=== PATIENT | male | born 1955 | race Caucasian/White ===

== ENCOUNTER 2025-01-20 00:01 | Day surgery (SDC) | payer MEDICARE, SELFPAY ==
[2025-01-07 15:25] VITALS: BMI 23.7
--- OUTSIDE RECORDS SUMMARY | 2025-01-20 00:04 | XMS_ITS | Data Portability ---
Author Organization [place] [facility] [employer], Main Office Address [address] [place] [address] Assessment Encounter Date Assessment Date Assessment LastModified by Organization Details LastModified Time 03/28/2023 03/28/2023 Blood work diagnosis discussed continue current therapy follow-up 6 months Not available 03/29/2023 18:31:30 05/20/2023 05/20/2023 X-ray nothing acute tetanus shot doxycycline follow-up 4 days [email or web address] Not available 05/20/2023 21:41:41 05/23/2023 05/23/2023 Keep regular appointment he is getting better every day he says he will finish the antibiotics which she had some superficial cellulitis as improving nicely if it does not completely go away he will let me know declines all immunizations and screenings on his wellness part see me at his regularly scheduled appointment Not available 05/26/2023 15:26:42 09/26/2023 09/26/2023 Continue current therapy follow-up 6 months [email or web address] Not available 09/26/2023 14:54:00 Plan of Treatment Reminders Order Date Submit Date Provider Last Modified By Organization Details Last Modified Time Details Appointments None recorded. Lab PSA, serum or plasma 2022 023 [email or web address] Not available 15:03:26 CBC w/ auto diff 2022 023 RE Not available 13:34:38 lipid panel, serum 2022 023 RE Not available 13:39:11 CMP, serum or plasma 2022 023 RE Not available 13:39:16 Referral None recorded. Procedures None recorded. Surgeries None recorded. Imaging None recorded. Medication Orders doxycycline hyclate 100 mg capsule 2022 023 [email or web address] [id number], [address], [place], [id number], 16:44:55 Patient TargetsNo targets recorded. Patient Instructions Encounter Date Encounter Id Patient Instructions Last Modified By Organization Details Last Modified Time 05/23/2023 [id number] dementia rating scale-2* [email or web address] Not available 05/26/2023 15:26:59 alcohol misuse* [email or web address] Not available 05/26/2023 15:26:59 depression screening* [email or web address] Not available 05/26/2023 15:26:59 Timed Up and Go test (TUG)* [email or web address] Not available 05/26/2023 15:26:59 multi-dimensiona l health assessment questionnaire* [email or web address] Not available 05/26/2023 15:26:59 Personalized a lth Plan and Screening Recommendations Advance Directives - Do you have one? No Advance Directives - Do we have your advance directive on file in your health record? Primary Prevention/Interven tion (prevents or decreases the chance of common diseases from occurring) Smoking Risk: Non Smoker Alcohol Misuse Screening: Negative Weight: Appropriate Overwei ght continue your current weight loss efforts try to lose 5% of your body weight try to lose 10% of your body weight Physical activity: Appropriate physical activity Nutrition: Good Average Fall Risk (screened today): Low Vaccines Pneumococcal: Ordered Recommended today Recommended today, but you have declined Influenza: Your next one in the fall of this year Chronic Disease Risks Stroke: Low Risk Intermediate Risk I have no recommendations Act carter diagnosis, Continue current treatment plan Heart Attack: Low risk I have no recommendations Clogging of the Arteries: Low risk I have no recommendations Diabetes: Low Risk I have no recommendations Secondary Prevention/Interven tion (detects treatable diseases before they may cause symptoms, disability, or ) Prostate Cancer Screening: Colon Cancer Screening: Colonoscopy Date Screening Last Performed: ____ Eye Disease Screening: Dementia Risk: Low I have no recommendations Depression Screening: Negative Active diagnosis, Continue current treatment plan [email or web address] Not available 05/23/2023 15:05:37 Reason for Referral None Reported. Results Created Date Observation Date Name Description Value Unit Range Abnormal Flag Note LastModifiedBy Organization Detail LastModifiedTime 03/28/20 23 03/28/2023 CBC/C OMPLE TE BLD COUNT W/DIF F white blood cells 4.6 x10'3 /uL 4.2-10 .8 Not Available [facility] (Lab) [address] [place], [address], 03/28/2023 13:34:38 03/28/20 23 03/28/2023 CBC/C OMPLE TE BLD COUNT W/DIF F red blood cells 4.35 x10'6 /uL 4.10-5 .80 Not Available [facility] (Lab) [address] [place], [address], 03/28/2023 13:34:38 03/28/20 23 03/28/2023 CBC/C OMPLE TE BLD COUNT W/DIF F hemoglobin 13.5 g/dL 13.2-1 7.0 Not Available [facility] (Lab) [address] [place], [address], 03/28/2023 13:34:38 03/28/20 23 03/28/2023 CBC/C OMPLE TE BLD COUNT W/DIF F hematocrit 40.3 % 39.3-5 0.0 Not Available [facility] (Lab) [address] [place], [address], 03/28/2023 13:34:38 03/28/20 23 03/28/2023 CBC/C OMPLE TE BLD COUNT W/DIF F mean red cell volume 92.6 fL 80.0-9 7.0 Not Available [facility] (Lab) [address] [place], [address], 03/28/2023 13:34:38 03/28/20 23 03/28/2023 CBC/C OMPLE TE BLD COUNT W/DIF F mean red cell hemoglobin 31.0 pg 27.0-3 3.0 Not Available [facility] (Lab) [address] [place], [address], 03/28/2023 13:34:38 03/28/20 23 03/28/2023 CBC/C OMPLE TE BLD COUNT W/DIF F mean RBC HGB concentratio n 33.5 g/dL 31.0-3 6.0 Not Available [facility] (Lab) [address] [place], [address], 03/28/2023 13:34:38 03/28/20 23 03/28/2023 CBC/C OMPLE TE BLD COUNT W/DIF F red cell distribution width 11.9 % 11.8-1 5.5 Not Available [facility] (Lab) [address] [place], [address], 03/28/2023 13:34:38 03/28/20 23 03/28/2023 CBC/C OMPLE TE BLD COUNT W/DIF F platelets 196 x10'3 /uL 150-40 0 Not Available [facility] (Lab) [address] [place], [address], 03/28/2023 13:34:38 03/28/20 23 03/28/2023 CBC/C OMPLE TE BLD COUNT W/DIF F mean platelet volume 9.6 fL 9.0-12 .4 Not Available [facility] (Lab) [address] [place], [address], 03/28/2023 13:34:38 03/28/20 23 03/28/2023 CBC/C OMPLE TE BLD COUNT W/DIF F neutrophils 64.3 % 39.0-7 2.0 Not Available [facility] (Lab) [address] [place], [address], 03/28/2023 13:34:38 03/28/20 23 03/28/2023 CBC/C OMPLE TE BLD COUNT W/DIF F lymphocytes 22.2 % 16.0-4 7.0 Not Available [facility] (Lab) [address] [place], [address], 03/28/2023 13:34:38 03/28/20 23 03/28/2023 CBC/C OMPLE TE BLD COUNT W/DIF F monocytes 10.6 % 5.0-12 .0 Not Available [facility] (Lab) [address] [place], [address], 03/28/2023 13:34:38 03/28/20 23 03/28/2023 CBC/C OMPLE TE BLD COUNT W/DIF F eosinophils 1.9 % 1.0-7. 0 Not Available [facility] (Lab) [address] [place], [address], 03/28/2023 13:34:38 03/28/20 23 03/28/2023 CBC/C OMPLE TE BLD COUNT W/DIF F basophils 0.6 % 0.0-2. 0 Not Available [facility] (Lab) [address] [place], [address], 03/28/2023 13:34:38 03/28/20 23 03/28/2023 CBC/C OMPLE TE BLD COUNT W/DIF F immature granulocytes 0.4 % 0.00-0 .50 Not Available [facility] (Lab) [address] [place], [address], 03/28/2023 13:34:38 03/28/20 23 03/28/2023 CBC/C OMPLE TE BLD COUNT W/DIF F neutrophils, absolute count 2.97 x10'3 /uL 1.5-8. 0 Not Available [facility] (Lab) [address] [place], [address], 03/28/2023 13:34:38 03/28/20 23 03/28/2023 CBC/C OMPLE TE BLD COUNT W/DIF F lymphocytes, absolute count 1.03 x10'3 /uL 1.07-3 .43 low Not Available [facility] (Lab) [address] [place], [address], 03/28/2023 13:34:38 03/28/20 23 03/28/2023 CBC/C OMPLE TE BLD COUNT W/DIF F monocytes, absolute count 0.49 x10'3 /uL 0.29-0 .99 Not Available [facility] (Lab) [address] [place], [address], 03/28/2023 13:34:38 03/28/20 23 03/28/2023 CBC/C OMPLE TE BLD COUNT W/DIF F eosinophils, absolute count 0.09 x10'3 /uL 0.02-0 .53 Not Available [facility] (Lab) [address] [place], [address], 03/28/2023 13:34:38 03/28/20 23 03/28/2023 CBC/C OMPLE TE BLD COUNT W/DIF F basophils, absolute count 0.03 x10'3 /uL 0.01-0 .08 Not Available [facility] (Lab) [address] [place], [address], 03/28/2023 13:34:38 03/28/20 23 03/28/2023 CBC/C OMPLE TE BLD COUNT W/DIF F immature granulocytes ,absolute 0.02 x10'3 /uL 0.00-0 .05 Not Available [facility] (Lab) [address] [place], [address], 03/28/2023 13:34:38 03/28/20 23 03/28/2023 CBC/C OMPLE TE BLD COUNT W/DIF F nucleated red blood cells 0.0 % -0 Not Available [facility] (Lab) [address] [place], [address], 03/28/2023 13:34:38 03/28/20 23 03/28/2023 CBC/C OMPLE TE BLD COUNT W/DIF F NRBC# 0.00 x10'3 /uL Not Available [facility] (Lab) [address] [place], [address], 03/28/2023 13:34:38 03/28/20 23 03/28/2023 LIPID PANEL cholesterol 186 mg/dL 140-19 9 NIH SAQIB NSUS RECOM MENDA TION FOR NIKOS STERO L: ADULT CHILD LOW RISK: <200 <170 BORDE RLINE : <200- 239 ----- HIGH RISK: >240 >200 Not Available [facility] (Lab) [address] [place], [address], 03/28/2023 13:39:10 03/28/20 23 03/28/2023 LIPID PANEL triglyceride s 145 mg/dL 0-150 NIH SAQIB NSUS REPOR T RECOM MENDA TION FOR TRIGL YCERI RIMA: ADULT CHILD LOW RISK: <150 ----- BODER LINE: 150-1 99 ----- HIGH RISK: >200 ----- Not Available [facility] (Lab) [address] [place], [address], 03/28/2023 13:39:10 03/28/20 23 03/28/2023 LIPID PANEL HDL cholesterol 52 mg/dL 40- Not Available [facility] (Lab) [address] [place], [address], 03/28/2023 13:39:10 03/28/20 23 03/28/2023 LIPID PANEL LDL cholesterol, calculated 105 mg/dL 0-130 NIH SAQIB NSUS REPOR T RECOM MENDA TIONS FOR LDL: ADULT CHILD LOW RISK <130 <110 (OPTI MAL LDL) <100 ----- BORDE RLINE : 130-1 59 ----- HIGH RISK: >160 >130 A TRIGL YCERI DE RESUL T >400 INVAL IDATE S THE CALCU LATIO N FOR LDL FRACT IONAT ION - THE LDL RESUL T WILL NOT BE REPOR NINO. Not Available [facility] (Lab) [address] [place], [address], 03/28/2023 13:39:10 03/28/20 23 03/28/2023 COMPR EHENS CARTER METAB OLIC PANEL sodium 140 mmol/ L 137-14 5 Not Available [facility] (Lab) [address] [place], [address], 03/28/2023 13:39:16 03/28/20 23 03/28/2023 COMPR EHENS CARTER METAB OLIC PANEL potassium 4.6 mmol/ L 3.5-5. 1 Not Available [facility] (Lab) [address] [place], [address], 03/28/2023 13:39:16 03/28/20 23 03/28/2023 COMPR EHENS CARTER METAB OLIC PANEL chloride 106 mmol/ L 98-107 Not Available [facility] (Lab) [address] [place], [address], 03/28/2023 13:39:16 03/28/20 23 03/28/2023 COMPR EHENS CARTER METAB OLIC PANEL carbon dioxide 27 mmol/ L 22-30 Not Available [facility] (Lab) [address] [place], [address], 03/28/2023 13:39:16 03/28/20 23 03/28/2023 COMPR EHENS CARTER METAB OLIC PANEL anion gap 11.6 mmol/ L 14-22 low Not Available [facility] (Lab) [address] [place], [address], 03/28/2023 13:39:16 03/28/20 23 03/28/2023 COMPR EHENS CARTER METAB OLIC PANEL glucose 80 mg/dL 70-99 Not Available [facility] (Lab) [address] [place], [address], 03/28/2023 13:39:16 03/28/20 23 03/28/2023 COMPR EHENS CARTER METAB OLIC PANEL BUN 29 mg/dL 8-19 high Not Available [facility] (Lab) [address] [place], [address], 03/28/2023 13:39:16 03/28/20 23 03/28/2023 COMPR EHENS CARTER METAB OLIC PANEL creatinine 1.12 mg/dL 0.66-1 .25 Not Available [facility] (Lab) [address] [place], [address], 03/28/2023 13:39:16 03/28/20 23 03/28/2023 COMPR EHENS CARTER METAB OLIC PANEL GFR >60 Refer ence Range : Lula ge GFR Healt hy Adult : >60 mL/mi n/1.7 3 m2 Chron ic Kidne y Disea se: 15-60 mL/mi n/1.7 3 m2 Kidne y Failu re: <15/m L/min /1.73 m2 www.n iddk. nih.g ov The MDRD study equat ion has not been valid ated in child mason <18 years of age; pregn ant women ; the elder ly >85 years of age; or in some racia l or ethni c subgr oups, such as Histx nics. Outsi de the valid ated deep eters , estim ated GFR is less accur ate, requi ring clini melissa judgm ent on a case- by-ca se basis . Clini melissa inter preta tion for other races and ages must be made by the clini angela. The MDRD study equat ion has not been valid ated for the evalu ation of serum creat inine relat ed to nutri amita l statu s or medic ation usage . For perso ns <18 years of age, a pedia tric GFR calcu lator is avail able on the NK websi te: https ://tommy w.liane ivey.o rg/pr ofess ional s/kdo qi/gf r_cal culat or Not Available [facility] (Lab) [address] [place], [address], 03/28/2023 13:39:16 03/28/20 23 03/28/2023 COMPR EHENS CARTER METAB OLIC PANEL alkaline phosphatase 50 U/L 38-126 Not Available [facility] (Lab) [address] [place], [address], 03/28/2023 13:39:16 03/28/20 23 03/28/2023 COMPR EHENS CARTER METAB OLIC PANEL alanine aminotransfe rase 26 U/L 0-50 Not Available [facility] (Lab) [address] [place], [address], 03/28/2023 13:39:16 03/28/20 23 03/28/2023 COMPR EHENS CARTER METAB OLIC PANEL aspartate aminotransfe rase 34 U/L 15-46 Not Available [facility] (Lab) [address] [place], [address], 03/28/2023 13:39:16 03/28/20 23 03/28/2023 COMPR EHENS CARTER METAB OLIC PANEL bilirubin, total 0.90 mg/dL 0.20-1 .30 Not Available [facility] (Lab) [address] [place], [address], 03/28/2023 13:39:16 03/28/20 23 03/28/2023 COMPR EHENS CARTER METAB OLIC PANEL calcium 9.2 mg/dL 8.4-10 .2 Not Available [facility] (Lab) [address] [place], [address], 03/28/2023 13:39:16 03/28/20 23 03/28/2023 COMPR EHENS CARTER METAB OLIC PANEL total protein 7.0 g/dL 6.3-8. 2 Not Available [facility] (Lab) [address] [place], [address], 03/28/2023 13:39:16 03/28/20 23 03/28/2023 COMPR EHENS CARTER METAB OLIC PANEL albumin 4.2 g/dL 3.0-4. 4 Not Available [facility] (Lab) [address] [place], [address], 03/28/2023 13:39:16 03/28/20 23 03/28/2023 COMPR EHENS CARTER METAB OLIC PANEL globulin 2.8 g/dL 2.6-4. 2 Not Available [facility] (Lab) [address] [place], [address], 03/28/2023 13:39:16 03/28/20 23 03/28/2023 COMPR EHENS CARTER METAB OLIC PANEL A/G ratio 1.5 ratio 1.0-2. 0 Not Available [facility] (Lab) [address] [place], [address], 03/28/2023 13:39:16 03/28/20 23 03/28/2023 PSA SCREE N PSA medicare screen 1.07 NG/mL 0.00-4 .00 Not Available [facility] (Lab) [address] [place], [address], 03/28/2023 14:03:13 05/20/20 23 XR, knee [facility] [address] [place] [address] Patien t Name: EDEL ESPINOZA ion #: [id number] Sex: M : 1954 7 Dictat ed By: Trino Mauricio Attend ing Physic anatoliy: ELI TURNER Orderi Physic anatoliy: ELI TURNER Exam Date: 2022 10:19 AM Exam Name: XR KNEE LT 3V Admitt ing Diagno sis(es ): Knee [facility] al Indica tion: knee pain Compar darrion: None FINDIN GS: The 3views of the knee show normal alignm ent withou t fractu res or disloc ations . The medial and latera l tibiof emoral compar tments and patell ofemor al compar tment are unrema rkable . There is no knee region soft tissue swelli ng. Hoffa' s fat pad region is unrema rkable . There are no joint bodies . There is no joint effusi on. There are no radiop aque foreig n bodies . If there is furthe r concer n, recomm end follow -up radiog raphs or MRI for comple te assess ment. IMPRES NADIRA: No fractu res or disloc ation of the knee. SL: [id number] Electr onical ly Signed by: Trino Mauricio at 2022 11:34: 32 AM Page 1 [facility] (Imaging) [address] [place], [address], 05/20/2023 15:03:39 Result Notes None recorded. Problems Name Problem SNOMED Code Status Onset Date Resolution Date Notes Provider Name and Address Organization Details Recorded Time Nocturia 811155427 Completed Not Available [facility] 3 01:12:18 Insomnia 291682134 Active 2018 Not Available [facility] 3 07:13:12 Dupuytren 's disease of palm 350323537 Active Not Available [facility] 3 07:13:12 Abdominal pain 55897111 Completed Not Available [facility] 3 01:12:18 Gastroeso phageal reflux disease 304766209 Active Not Available [facility] 3 07:13:12 Gastroeso phageal reflux disease without esophagit is 853326893 Active 2018 Not Available [facility] 3 07:13:12 Sore throat 667191415 Active 2021 Not Available [facility] 3 07:13:12 Syncope 317204643 Completed 201604/28/2019 Not Available [facility] 3 01:12:18 Numbness of foot 119509934 Completed 201604/28/2019 Not Available [facility] 3 01:12:18 Depressiv e disorder 22025927 Active Not Available [facility] 3 07:13:12 Ulnar neuropath y 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 Active Not Available [facility] 3 07:13:12 Proctitis 4196067 Completed Not Available [facility] 3 01:12:18 Celiac disease 203089372 Active 2016 Not Available [facility] 3 07:13:12 Disorder of rotator cuff 363171264 Active Not Available [facility] 3 07:13:12 Pain of shoulder region 63152309 Completed Not Available [facility] 3 01:12:18 Gastritis 3807552 Active Not Available [facility] 3 07:13:12 Anxiety 23022098 Active Not Available [facility] 3 07:13:12 Essential hypertens ion 96439187 Active Not Available [facility] 3 07:13:12 Colitis 90039202 Completed Not Available [facility] 3 01:12:19 Rectal pain 48298221 Completed Not Available [facility] 3 01:12:19 COVID-19 685411385 Active 2021 Not Available [facility] 3 07:13:12 Skin lesion 69334384 Completed Not Available [facility] 3 01:12:19 Injury of knee 728833290 Active 2022 Not Available [facility] 3 07:13:11 Pain of left knee joint 60475103164 4107 Active 2022 Not Available [facility] 3 07:13:12 Open wound of knee without complicat ion 79661983 Active 2022 Not Available [facility] 3 07:13:12 Problem Notes None recorded. Procedures Surgical History Date Name Laterality Status Provider Name and Address Organization Details Recorded Time 05/23/20 Medicare Wellness CPT Code, Initial completed Nell Ladd RN [place] - [facility] 05/23/2023 15:00:09 09/18/19 23 Endoscopy completed Not Available [facility] 3 01:06:50 09/18/19 23 Colonoscopy completed Not Available [facility] 11/08/19 23 01:06:50 other completed Not Available [facility] 09/2022 01:06:50 Imaging Results Imaging Date Name Status LastModified by Organiz ation Details LastModified Time 05/20/2023 [facility] [address] [facility], [place], [address], 05/20/2023 15:03:39 Procedure Notes None recorded. Medical Equipment None Reported. Allergies Allergen ID Allergen Name Allergen Category Reaction Reaction Severity Criticality Documentation Date Start Date Code Code System Note Provider Name and Address Organization Details Recorded Time 1977 iodine medicatio n respirato ry distress Not available Not available 11/07/2022 5933 RxNorm Not Available [facility] 3 01:18:45 Medications Name Sig Start Date Stop Date Status Note LastModified by Organization Details LastModified Time amoxicillin 500 mg capsule TAKE 1 CAPSULE BY MOUTH EVERY 8 HOURS UNTIL ALL TAKEN 03/28 completed Not Available Not Available Not Available doxycycline hyclate 100 mg capsule TAKE 1 CAPSULE BY MOUTH TWICE DAILY FOR 7 DAYS active Not Available Not Available No t Available sulfasalazi ne 500 mg tablet TK 1 T PO TID UTD FOR 4 DAYS active Not Available Not Available No t Available clindamycin HCl 300 mg capsule 04/22 completed Not Available Not Available Not Available azithromyci n 250 mg tablet Take by oral route.2ta bs first day then 1 daily 03/22 completed Not Available Not Available Not Available aspirin 325 mg tablet Take 1 tablet every day by oral route for 90 days. 2013 active Not Available Not Available Not Avai lable ibuprofen 800 mg tablet TAKE 1 TABLET BY MOUTH EVERY 8 HOURS NEEDED FOR PAIN 03/28 completed Not Available Not Available Not Available cephalexin 250 mg capsule TAKE 1 CAPSULE BY MOUTH EVERY 6 HOURS UNTIL ALL TAKEN 03/28 completed Not Available Not Available Not Available sertraline 100 mg tablet TK 1 T PO Q DAY active Not Available Not Available No t Available Anucort-HC 25 mg suppository UNWRAP AND INSERT 1 SUPPOSITO RY RECTALLY BID active Not Available Not Available No t Available acetaminoph en 300 mg-codeine 30 mg tablet TAKE 1 TO 2 TABLETS BY MOUTH EVERY 4 HOURS NEEDED FOR PAIN 01/30 completed Not Available Not Available Not Available prochlorper azine maleate 10 mg tablet active Not Available Not Available No t Available sulfamethox azole 800 mg-trimetho prim 160 mg tablet 04/28 completed Not Available Not Available Not Available peg-electro lyte solution 420 gram oral solution MIX AND DRINK 1/2 AT 5 PM ON 09/17 AND THE OTHER 1/2 AT 5 AM ON 09/18 completed Not Available Not Available Not Available chlorpromaz ine 10 mg tablet TK 1 T PO TID 04/28 completed Not Available Not Available Not Available Nitro-Bid 2 % transdermal ointment APPLY TOPICALLY BID UTD active Not Available Not Available No t Available amoxicillin 875 mg tablet TK 1 T PO BID 10/21 completed Not Available Not Available Not Available Vitamin C 1,000 mg tablet Take by oral route. 12/20 completed Not Available Not Available Not Available lorazepam 0.5 mg tablet TAKE 1 TABLET BY MOUTH TWICE DAILY active Not Available Not Available No t Available trazodone 100 mg tablet TK 1 T PO QD HS 12/06 completed Not Available Not Available Not Available Kenalog 10 mg/mL suspension for injection In office injection administe red by the provider 09/12 completed [facility]: [phone] [id number] [phone] Not Available Not Available Not Available baclofen 10 mg tablet TK 1 T PO BID BEFORE MEALS 02/22 completed Not Available Not Available Not Available hydrocodone 7.5 mg-acetamin ophen 325 mg tablet 04/22 completed Not Available Not Available Not Available trazodone 150 mg tablet TAKE 1 AND 1/2 TABLETS BY MOUTH EVERY NIGHT AT BEDTIME active Not Available Not Available No t Available hydrocodone 7.5 mg-acetamin ophen 750 mg tablet active Not Available Not Available No t Available Gentle Laxative (bisacodyl) 5 mg tablet,zonia yed release TK 6 TS PO AT 8 AM ON 11/23/19 active Not Available Not Available No t Available docusate sodium 100 mg capsule Take 1 capsule every day by oral route. 03/08 completed Not Available Not Available Not Available sertraline 25 mg tablet TAKE SS T A DAY FOR 4 DAYS THEN INCREASE TO 1 T A DAY active Not Available Not Available No t Available ergocalcife rol (vitamin D2) 1,250 mcg (50,000 unit) capsule TAKE 1 CAPSULE BY MOUTH EVERY WEEK 03/08 completed Not Available Not Available Not Available Promethegan 25 mg rectal suppository active Not Available Not Available Not Available ibuprofen 600 mg tablet TAKE 1 TABLET BY MOUTH EVERY 6 HOURS NEEDED FOR PAIN 01/30 completed Not Available Not Available Not Available Pepcid 20 mg tablet Take 1 tablet every day by oral route. 10/21 completed Not Available Not Available Not Available sertraline 50 mg tablet TK 1 T PO QD active Not Available Not Available No t Available dicyclomine 10 mg capsule Take 1 capsule every day by oral route. active Not Available Not Available No t Available amoxicillin 875 mg-potassiu m clavulanate 125 mg tablet 03/08 completed Not Available Not Available Not Available escitalopra m 10 mg tablet TAKE 1 AND 1/2 TABLETS BY MOUTH EVERY DAY 03/28 completed Not Available Not Available Not Available escitalopra m 20 mg tablet TAKE 1 TABLET BY MOUTH EVERY DAY active Not Available Not Available No t Available Vesicare 5 mg tablet TAKE 1 TABLET BY MOUTH EVERY DAY AT BEDTIME 04/22 completed Not Available Not Available Not Available Aspir-81 2 daily 06/05 completed Not Available Not Available Not Available fiber 2 in am 2 in pm 2013 active Not Available Not Available Not Avai lable multivitami n 2020 active Not Available Not Available Not Avai lable lidocaine (PF) 10 mg/mL (1 %) injection solution In office injection administe red by the provider 09/12 completed [facility]: [id number] Not Available Not Available Not Available Bystolic 5 mg tablet Take 1 tablet by mouth every day as directed active Not Available Not Available No t Available Allergy Relief (cetirizine ) 01/30 completed Not Available Not Available Not Available Vitamin D 2,000 unit capsule Take by oral route. 12/20 completed Not Available Not Available Not Available dexlansopra zole 60 mg capsule,bip hase delayed release TAKE 1 CAPSULE BY MOUTH DAILY active Not Available Not Available No t Available GaviLyte-G 236 gram-22.74 gram-6.74 gram-5.86 gram oral solution MIX AND DRINK HALF AT 5 PM ON 11/23/19 AND THE OTHER HALF AT 5 AM ON 11/24/19 active Not Available Not Available No t Available Probiotic daily 03/28 completed Not Available Not Available Not Available EpiPen 2-Timothy 0.3 mg/0.3 mL injection, auto-inject or Take 1 auto as needed by injection route. active Not Available Not Available No t Available Powderlax 2022 active Not Available Not Available Not Avai lable prochlorper azine 2022 active Not Available Not Available Not Avai lable Nexium 24HR 20 mg capsule,del ayed release Take 1 capsule every day by oral route. 08/25 completed Not Available Not Available Not Available Fluarix Quad (PF) 60 mcg (15 mcg x 4)/0.5 mL IM syringe ADM 0.5ML IM UTD 08/23 completed Not Available Not Available Not Available Paxlovid 300 mg (150 mg x 2)-100 mg tablets in a dose pack TAKE 2 NIRMATREL VIR TABLETS AND 1 RITONAVIR TABLET TOGETHER BY MOUTH TWICE DAILY FOR 5 DAYS active Not Available Not Available No t Available Vitals Date Recorded Body mass index (BMI) Body height Heart rate Body temperature Body weight Systolic blood pressure Diastolic blood pressure Provider Name and Address Organization Details Last Updated DateTime 3 27.6 kg/m2 187.96 cm 67 /min 98.1 [degF] 91670.3 6 g 116 mm[Hg] 80 mm[Hg] Not Available [facility] 3 01:08:10 [id number]|2025-01-20 07:45:00|2025-01-20 07:45:00|[email or web address]_WILMER|LEIDY|Health Information Management|[id number]|"Anes - Initial Pre Proc Eval Procedure: Operation Date: 01/20/25 08:30 Proposed Procedures p Esophagogastroduodenoscopy & Colonoscopy - Adilson Barreto MD Date/Time: 01/20/25 07:45 Surgeon: Adilson Barreto MD Pre Op Diagnosis: GERD, Hx of polyps Patient Data Age: 69 Gender: M Height: 1.88 m Weight: 81.4 kg Last Vital Signs Temp 36.8 C 01/20/25 07:10 Pulse 61 01/20/25 07:10 Resp 18 01/20/25 07:10 BP 154/88 H 01/20/25 07:10 Pulse Ox 100 01/20/25 07:10 O2 Del Method Room Air 01/20/25 07:10 Allergies Allergy/AdvReac Type Severity Reaction Status Date / Time ascorbic acid Allergy Mild Verified 01/30/13 05:32 bromelains Allergy Mild Verified 01/30/13 05:32 iodine Allergy Mild Verified 01/30/13 05:32 Home Medications Medication Instructions Recorded Confirmed Type bupropion HCl 150 mg 24 hr tablet, 150 mg PO .am 01/07/25 01/20/25 History extended release dexlansoprazole 60 mg 60 mg PO DAILY 01/07/25 01/20/25 History capsule,biphase delayed release escitalopram oxalate 10 mg tablet 10 mg PO DAILY 01/07/25 01/20/25 History lorazepam 0.5 mg tablet 0.5 mg PO Q12H 01/07/25 01/20/25 History Patient hx anesthesia problems: none Family hx anesthesia problems: none Results Review: All pre-operative results and documents have been reviewed as part of the pre- operative evaluation. [facility] Past Medical History Medical History (Updated 01/20/25 @ 07:49 by Edel Krishna MD) GERD (gastroesophageal reflux disease) Depression Anxiety Surgical History Surgical History (Updated 01/20/25 @ 07:49 by Edel Krishna MD) History of esophagogastroduodenoscopy (EGD) H/O colonoscopy H/O elbow surgery Social History Social History Smoking status: Former smoker Tobacco type: cigarettes Alcohol intake: former Substance use: current Substance use type: does not use Living arrangements: with family Spiritual care concerns: No Anes - Eval Final PreProcedure Day of Procedure 01/20/25 07:45 Patient weight: normal Heart: regular rate and rhythm Lungs: clear to auscultation Airway: Mallampati scale class 1 Neurological: alert and oriented Last oral intake: >/= 8 hours ASA classification: II Emergent: no Anesthetic plan: proceed Anesthesia type and monitoring: general GIVS and standard monitoring Results Review: All pre-operative results and documents have been reviewed as part of the pre- operative evaluation. Informed Consent: The patient's anesthetic plan and its attendant risks and benefits were discussed with the patient/family/POA. Questions were solicited and answers provided to the satisfaction of the patient/family/POA. "
--- OUTSIDE RECORDS SUMMARY | 2025-01-20 00:04 | XMS_ITS | Data Portability ---
Author Organization [facility] [place] Address [address] [place] [address] Care Team Providers Care Film Examiner Name Role Phone MARJAN CANDELARIA Primary Care Provider [phone] Assessment Encounter Date Assessment Date Assessment LastModified by Organization Details LastModified Time 01/02/2024 01/02/2024 Insomnia trazodone anxiety appropriate on escitalopram lorazepam GERD PPI old records thinks he is up-to-date on screenings and immunizations but will have to see me follow-up with me in 4 months [email or web address] Not available 01/11/2024 22:52:56 07/02/2024 07/02/2024 Insomnia trazodone anxiety appropriate on escitalopram lorazepam GERD PPI old records thinks he is up-to-date on screenings and immunizations but will have to see me follow-up with me in 4 months we will continue with current therapy healthy lifestyle care instructions the aide with some weight loss was discussed due for colonoscopy in 2024 vaccinations declined Not available 07/11/2024 20:35:38 10/08/2024 10/08/2024 GERD with some breakthrough symptoms we will get an upper endoscopy he has been on the PPI for quite some time his anxiety has been stable insomnia continue current therapy blood work has been ordered follow up with me in 4 months Not available 10/10/2024 13:42:20 Plan of Treatment Reminders Order Date Submit Date Provider Last Modified By Organization Details Last Modified Time Details Appointments ANY 15 2024 09:30A Aayush Candelaria MD Not available Not available Not available Lab CMP, serum or plasma 2024 025 [facility], [address] [address], [place], [address], 10/10/2024 07:09:16 lipid panel, serum 2024 025 [facility], [address] [facility] [address], [place], [address], 10/10/2024 07:09:15 CBC w/ auto diff 2024 025 [facility], [address] [facility] [address], [place], [address], 10/10/2024 07:09:17 PSA, total, serum or plasma 2023 [address] [facility], [address] [place] [address], [address], [place], [address], 01/03/2024 08:27:59 lipid panel, serum 2023 024 [facility], [address] [place] [address], [address], [place], [address], 01/03/2024 08:27:56 CMP, serum or plasma 2023 [address] [facility], [address] [place] [address], [address], [place], [address], 01/03/2024 08:27:57 CBC w/ auto diff 2023 024 [facility], [address] [place] [address], [address], [place], [address], 01/03/2024 08:27:58 Referral None recorded. Procedures upper endoscopy procedure (EGD) (PROC) 2024 025 [facility], [address], [address], [place], [address], 01/05/2025 09:21:14 Surgeries None recorded. Imaging None recorded. Medication Orders None recorded. Patient TargetsNo targets recorded. Patient Instructions Encounter Date Encounter Id Patient Instructions Last Modified By Organization Details Last Modified Time 07/02/2024 [id number] A healthy lifestyle: care instructions [email or web address] Not available 07/11/2024 20:35:54 Reason for Referral None Reported. Results Created Date Observation Date Name Description Value Unit Range Abnormal Flag Note LastModifiedBy Organization Detail LastModifiedTime 01/02/2001/03/2024 LIPID PANEL cholesterol, total 174 mg/dL 100-19 9 Not Available [facility] ([facility]) [address] [place], [address], 01/03/2024 08:27:56 01/02/2001/03/2024 LIPID PANEL triglyceride s 77 mg/dL 0-149 Not Available [facility] ([facility]) [address] [place], [address], 01/03/2024 08:27:56 01/02/20 24 01/03/2024 LIPID PANEL HDL cholesterol 63 mg/dL >39 Not Available [facility] ([facility]) [address] [place], [address], 01/03/2024 08:27:56 01/02/20 24 01/03/2024 LIPID PANEL VLDL cholesterol melissa 14 mg/dL 5-40 Not Available [facility] ([facility]) [address] [place], [address], 01/03/2024 08:27:56 01/02/2001/03/2024 LIPID PANEL LDL chol calc ([facility]) 97 mg/dL 0-99 Not Available [facility] ([facility]) [address] [place], [address], 01/03/2024 08:27:56 01/02/20 24 01/03/2024 COMP. METAB OLIC PANEL (14) glucose 86 mg/dL 70-99 Not Available [facility] ([facility]) [address] [place], [address], 01/03/2024 08:27:57 01/02/20 24 01/03/2024 COMP. METAB OLIC PANEL (14) BUN 26 mg/dL 8-27 Not Available [facility] ([facility]) [address] [facility], [place], [address], 01/03/2024 08:27:57 01/02/20 24 01/03/2024 COMP. METAB OLIC PANEL (14) creatinine 1.23 mg/dL 0.76-1 .27 Not Available [facility] ([facility]) [address] [place], [address], 01/03/2024 08:27:57 01/02/20 24 01/03/2024 COMP. METAB OLIC PANEL (14) eGFR 65 mL/mi n/1.7 3 >59 Not Available [facility] ([facility]) [address] [place], [address], 01/03/2024 08:27:57 01/02/20 24 01/03/2024 COMP. METAB OLIC PANEL (14) BUN/creatini ne ratio 21 10-24 Not Available [facility] ([facility]) [address] [place], [address], 01/03/2024 08:27:57 01/02/20 24 01/03/2024 COMP. METAB OLIC PANEL (14) sodium 143 mmol/ L 134-14 4 Not Available [facility] ([facility]) [address] [place], [address], 01/03/2024 08:27:57 01/02/20 24 01/03/2024 COMP. METAB OLIC PANEL (14) potassium 4.6 mmol/ L 3.5-5. 2 Not Available [facility] ([facility]) [address] [place], [address], 01/03/2024 08:27:57 01/02/20 24 01/03/2024 COMP. METAB OLIC PANEL (14) chloride 105 mmol/ L 96-106 Not Available [facility] ([facility]) [address] [facility] [place], [address], 01/03/2024 08:27:57 01/02/20 24 01/03/2024 COMP. METAB OLIC PANEL (14) carbon dioxide, total 25 mmol/ L 20-29 Not Available [facility] ([facility]) [address] [facility] [place], [address], 01/03/2024 08:27:57 01/02/20 24 01/03/2024 COMP. METAB OLIC PANEL (14) calcium 9.8 mg/dL 8.6-10 .2 Not Available [facility] ([facility]) [address] [facility] [place], [address], 01/03/2024 08:27:57 01/02/20 24 01/03/2024 COMP. METAB OLIC PANEL (14) protein, total 6.8 g/dL 6.0-8. 5 Not Available [facility] ([facility]) [address] [facility] [place], [address], 01/03/2024 08:27:57 01/02/20 24 01/03/2024 COMP. METAB OLIC PANEL (14) albumin 4.5 g/dL 3.9-4. 9 Not Available [facility] ([facility]) [address] [facility] [place], [address], 01/03/2024 08:27:57 01/02/20 24 01/03/2024 COMP. METAB OLIC PANEL (14) globulin, total 2.3 g/dL 1.5-4. 5 Not Available [facility] ([facility]) [address] [facility] [place], [address], 01/03/2024 08:27:57 01/02/20 24 01/03/2024 COMP. METAB OLIC PANEL (14) A/G ratio 2.0 1.2-2. 2 Not Available [facility] ([facility]) [address] [facility], [place], [address], 01/03/2024 08:27:57 01/02/20 24 01/03/2024 COMP. METAB OLIC PANEL (14) bilirubin, total 0.6 mg/dL 0.0-1. 2 Not Available [facility] ([facility]) [address] [facility], [place], [address], 01/03/2024 08:27:57 01/02/20 24 01/03/2024 COMP. METAB OLIC PANEL (14) alkaline phosphatase 61 IU/L 44-121 Not Available [facility] ([facility]) [address] [facility], [place], [address], 01/03/2024 08:27:57 01/02/20 24 01/03/2024 COMP. METAB OLIC PANEL (14) AST (SGOT) 22 IU/L 0-40 Not Available [facility] ([facility]) [address] [facility], [place], [address], 01/03/2024 08:27:57 01/02/20 24 01/03/2024 COMP. METAB OLIC PANEL (14) ALT (SGPT) 22 IU/L 0-44 Not Available [facility] ([facility]) [address] [place], [address], 01/03/2024 08:27:57 01/02/20 24 01/03/2024 CBC WITH DIFFE RENTI AL/PL ATELE T WBC 4.0 x10e3 /uL 3.4-10 .8 Not Available [facility] ([facility]) [address] [place], [address], 01/03/2024 08:27:58 01/02/20 24 01/03/2024 CBC WITH DIFFE RENTI AL/PL ATELE T RBC 4.47 x10e6 /uL 4.14-5 .80 Not Available [facility] ([facility]) [address] [facility], [place], [address], 01/03/2024 08:27:58 01/02/20 24 01/03/2024 CBC WITH DIFFE RENTI AL/PL ATELE T hemoglobin 13.7 g/dL 13.0-1 7.7 Not Available [facility] ([facility]) [address] [facility], [place], [address], 01/03/2024 08:27:58 01/02/20 24 01/03/2024 CBC WITH DIFFE RENTI AL/PL ATELE T hematocrit 40.8 % 37.5-5 1.0 Not Available [facility] ([facility]) [address] [facility], [place], [address], 01/03/2024 08:27:58 01/02/20 24 01/03/2024 CBC WITH DIFFE RENTI AL/PL ATELE T MCV 91 fL 79-97 Not Available [facility] ([facility]) [address] [facility], [place], [address], 01/03/2024 08:27:58 01/02/20 24 01/03/2024 CBC WITH DIFFE RENTI AL/PL ATELE T MCH 30.6 pg 26.6-3 3.0 Not Available [facility] ([facility]) [address] [place], [address], 01/03/2024 08:27:58 01/02/20 24 01/03/2024 CBC WITH DIFFE RENTI AL/PL ATELE T MCHC 33.6 g/dL 31.5-3 5.7 Not Available [facility] ([facility]) [address] [place], [address], 01/03/2024 08:27:58 01/02/20 24 01/03/2024 CBC WITH DIFFE RENTI AL/PL ATELE T RDW 12.2 % 11.6-1 5.4 Not Available [facility] ([facility]) [address] [facility], [place], [address], 01/03/2024 08:27:58 01/02/20 24 01/03/2024 CBC WITH DIFFE RENTI AL/PL ATELE T platelets 199 x10e3 /uL 150-45 0 Not Available [facility] ([facility]) [address] [facility], [place], [address], 01/03/2024 08:27:58 01/02/20 24 01/03/2024 CBC WITH DIFFE RENTI AL/PL ATELE T neutrophils 51 % notest ab. Not Available [facility] ([facility]) [address] [facility], [place], [address], 01/03/2024 08:27:58 01/02/20 24 01/03/2024 CBC WITH DIFFE RENTI AL/PL ATELE T lymphs 32 % notest ab. Not Available [facility] ([facility]) [address] [facility], [place], [address], 01/03/2024 08:27:58 01/02/20 24 01/03/2024 CBC WITH DIFFE RENTI AL/PL ATELE T monocytes 12 % notest ab. Not Available [facility] ([facility]) [address] [facility], [place], [address], 01/03/2024 08:27:58 01/02/20 24 01/03/2024 CBC WITH DIFFE RENTI AL/PL ATELE T eos 3 % notest ab. Not Available [facility] ([facility]) [address] [facility], [place], [address], 01/03/2024 08:27:58 01/02/20 24 01/03/2024 CBC WITH DIFFE RENTI AL/PL ATELE T basos 1 % notest ab. Not Available [facility] ([facility]) [address] [facility], [place], [address], 01/03/2024 08:27:58 01/02/20 24 01/03/2024 CBC WITH DIFFE RENTI AL/PL ATELE T neutrophils (absolute) 2.1 x10e3 /uL 1.4-7. 0 Not Available [facility] ([facility]) [address] [facility], [place], [address], 01/03/2024 08:27:58 01/02/20 24 01/03/2024 CBC WITH DIFFE RENTI AL/PL ATELE T lymphs (absolute) 1.3 x10e3 /uL 0.7-3. 1 Not Available [facility] ([facility]) [address] [facility], [place], [address], 01/03/2024 08:27:58 01/02/20 24 01/03/2024 CBC WITH DIFFE RENTI AL/PL ATELE T monocytes(ab solute) 0.5 x10e3 /uL 0.1-0. 9 Not Available [facility] ([facility]) [address] [facility], [place], [address], 01/03/2024 08:27:58 01/02/20 24 01/03/2024 CBC WITH DIFFE RENTI AL/PL ATELE T eos (absolute) 0.1 x10e3 /uL 0.0-0. 4 Not Available [facility] ([facility]) [address] [facility], [place], [address], 01/03/2024 08:27:58 01/02/20 24 01/03/2024 CBC WITH DIFFE RENTI AL/PL ATELE T baso (absolute) 0.0 x10e3 /uL 0.0-0. 2 Not Available [facility] ([facility]) [address] [place], [address], 01/03/2024 08:27:58 01/02/20 24 01/03/2024 CBC WITH DIFFE RENTI AL/PL ATELE T immature granulocytes 1 % notest ab. Not Available [facility] ([facility]) [address] [facility], [place], [address], 01/03/2024 08:27:58 01/02/20 24 01/03/2024 CBC WITH DIFFE RENTI AL/PL ATELE T immature grans (abs) 0.0 x10e3 /uL 0.0-0. 1 Not Available [facility] ([facility]) [address] [facility], [place], [address], 01/03/2024 08:27:58 01/02/20 24 01/03/2024 PROST ATE-S PECIF IC AG prostate specific Ag 1.3 NG/mL 0.0-4. 0 Jacey ECLIA metho dolog y. Accor ding to the Ameri can [employer]o g[employer] iatio n, Serum PSA shoul d decre ase and remai n at undet ectab le level s after radic al prost atect lily. The AUA defin es bioch emica l recur rence as an initi al PSA value 0.2 ng/mL or great er follo wed by a subse quent confi rmato ry PSA value 0.2 ng/mL or great er. Value s obtai vinny with diffe rent assay metho ds or kits canno t be used inter harris eably . Resul ts canno t be inter prete d as absol jameson evide nce of the prese nce or absen ce of [facility] se. Not Available [facility] ([facility]) [address] [facility], [place], [address], 01/03/2024 08:27:59 10/08/1910/10/2024 LIPID PANEL cholesterol, total 141 mg/dL 100-19 9 Not Available [facility] ([facility]) [address] [facility], [place], [address], 10/10/2024 07:09:15 10/08/19 25 10/10/2024 LIPID PANEL triglyceride s 63 mg/dL 0-149 Not Available [facility] ([facility]) [address] [facility], [place], [address], 10/10/2024 07:09:15 10/08/19 25 10/10/2024 LIPID PANEL HDL cholesterol 54 mg/dL >39 Not Available [facility] ([facility]) [address] [place], [address], 10/10/2024 07:09:15 10/08/19 25 10/10/2024 LIPID PANEL VLDL cholesterol melissa 13 mg/dL 5-40 Not Available [facility] ([facility]) [address] [place], [address], 10/10/2024 07:09:15 10/08/19 25 10/10/2024 LIPID PANEL LDL chol calc ([facility]) 74 mg/dL 0-99 Not Available [facility] ([facility]) [address] [place], [address], 10/10/2024 07:09:15 10/08/19 25 10/09/2024 COMP. METAB OLIC PANEL (14) glucose 88 mg/dL 70-99 Not Available [facility] ([facility]) [address] [place], [address], 10/10/2024 07:09:16 10/08/19 25 10/09/2024 COMP. METAB OLIC PANEL (14) BUN 23 mg/dL 8-27 Not Available [facility] ([facility]) [address] [place], [address], 10/10/2024 07:09:16 10/08/19 25 10/09/2024 COMP. METAB OLIC PANEL (14) creatinine 1.25 mg/dL 0.76-1 .27 Not Available [facility] ([facility]) [address] [place], [address], 10/10/2024 07:09:16 10/08/19 25 10/09/2024 COMP. METAB OLIC PANEL (14) eGFR 63 mL/mi n/1.7 3 >59 Not Available [facility] ([facility]) [address], [place], [address], 10/10/2024 07:09:16 10/08/19 25 10/09/2024 COMP. METAB OLIC PANEL (14) BUN/creatini ne ratio 18 10-24 Not Available [facility] ([facility]) [address], [place], [address], 10/10/2024 07:09:16 10/08/19 25 10/09/2024 COMP. METAB OLIC PANEL (14) calcium 9.3 mg/dL 8.6-10 .2 Not Available [facility] ([facility]) [address] [place], [address], 10/10/2024 07:09:16 10/08/19 25 10/10/2024 COMP. METAB OLIC PANEL (14) sodium 140 mmol/ L 134-14 4 Not Available [facility] ([facility]) [address], [place], [address], 10/10/2024 07:09:16 10/08/19 25 10/10/2024 COMP. METAB OLIC PANEL (14) potassium 4.8 mmol/ L 3.5-5. 2 Not Available [facility] ([facility]) [address] [facility] [place], [address], 10/10/2024 07:09:16 10/08/19 25 10/10/2024 COMP. METAB OLIC PANEL (14) chloride 103 mmol/ L 96-106 Not Available [facility] ([place] [facility]) [address] [facility] [place], [address], 10/10/2024 07:09:16 10/08/19 25 10/10/2024 COMP. METAB OLIC PANEL (14) carbon dioxide, total 25 mmol/ L 20-29 Not Available [facility] ([place] [facility]) [address] [facility] [place], [address], 10/10/2024 07:09:16 10/08/19 25 10/10/2024 COMP. METAB OLIC PANEL (14) protein, total 6.3 g/dL 6.0-8. 5 Not Available [facility] ([facility]) [address], [place], [address], 10/10/2024 07:09:16 10/08/19 25 10/10/2024 COMP. METAB OLIC PANEL (14) albumin 4.2 g/dL 3.9-4. 9 Not Available [facility] ([facility]) [address], [place], [address], 10/10/2024 07:09:16 10/08/19 25 10/10/2024 COMP. METAB OLIC PANEL (14) globulin, total 2.1 g/dL 1.5-4. 5 Not Available [facility] ([facility]) [address] [facility], [place], [address], 10/10/2024 07:09:16 10/08/19 25 10/10/2024 COMP. METAB OLIC PANEL (14) bilirubin, total 0.6 mg/dL 0.0-1. 2 Not Available [facility] ([facility]) [address] [facility], [place], [address], 10/10/2024 07:09:16 10/08/19 25 10/10/2024 COMP. METAB OLIC PANEL (14) alkaline phosphatase 60 IU/L 44-121 Not Available [facility] ([facility]) [address] [facility], [place], [address], 10/10/2024 07:09:16 10/08/19 25 10/10/2024 COMP. METAB OLIC PANEL (14) AST (SGOT) 22 IU/L 0-40 Not Available [facility] ([facility]) [address] [facility], [place], [address], 10/10/2024 07:09:16 10/08/1910/10/2024 COMP. METAB OLIC PANEL (14) ALT (SGPT) 17 IU/L 0-44 Not Available [facility] ([facility]) [address] [facility], [place], [address], 10/10/2024 07:09:16 10/08/19 25 10/09/2024 CBC WITH DIFFE RENTI AL/PL ATELE T WBC 4.5 x10e3 /uL 3.4-10 .8 Not Available [facility] ([facility]) [address] [facility], [place], [address], 10/10/2024 07:09:17 10/08/1910/09/2024 CBC WITH DIFFE RENTI AL/PL ATELE T RBC 4.36 x10e6 /uL 4.14-5 .80 Not Available [facility] ([facility]) [address] [facility], [place], [address], 10/10/2024 07:09:17 10/08/19 25 10/09/2024 CBC WITH DIFFE RENTI AL/PL ATELE T hemoglobin 13.0 g/dL 13.0-1 7.7 Not Available [facility] ([facility]) [address] [facility], [place], [address], 10/10/2024 07:09:17 10/08/1910/09/2024 CBC WITH DIFFE RENTI AL/PL ATELE T hematocrit 40.6 % 37.5-5 1.0 Not Available [facility] ([facility]) [address] [facility], [place], [address], 10/10/2024 07:09:17 10/08/1910/09/2024 CBC WITH DIFFE RENTI AL/PL ATELE T MCV 93 fL 79-97 Not Available [facility] ([facility]) [address] [facility], [place], [address], 10/10/2024 07:09:17 10/08/1910/09/2024 CBC WITH DIFFE RENTI AL/PL ATELE T MCH 29.8 pg 26.6-3 3.0 Not Available [facility] ([facility]) [address] [facility], [place], [address], 10/10/2024 07:09:17 10/08/19 25 10/09/2024 CBC WITH DIFFE RENTI AL/PL ATELE T MCHC 32.0 g/dL 31.5-3 5.7 Not Available [facility] ([facility]) [address] [facility], [place], [address], 10/10/2024 07:09:17 10/08/1910/09/2024 CBC WITH DIFFE RENTI AL/PL ATELE T RDW 11.8 % 11.6-1 5.4 Not Available [facility] ([facility]) [address] [facility], [place], [address], 10/10/2024 07:09:17 10/08/1910/09/2024 CBC WITH DIFFE RENTI AL/PL ATELE T platelets 210 x10e3 /uL 150-45 0 Not Available [facility] ([facility]) [address] [facility], [place], [address], 10/10/2024 07:09:17 10/08/19 25 10/09/2024 CBC WITH DIFFE RENTI AL/PL ATELE T neutrophils 54 % notest ab. Not Available [facility] ([facility]) [address] [facility], [place], [address], 10/10/2024 07:09:17 10/08/1910/09/2024 CBC WITH DIFFE RENTI AL/PL ATELE T lymphs 30 % notest ab. Not Available [facility] ([facility]) [address] [facility], [place], [address], 10/10/2024 07:09:17 10/08/1910/09/2024 CBC WITH DIFFE RENTI AL/PL ATELE T monocytes 11 % notest ab. Not Available [facility] ([facility]) [address] [facility], [place], [address], 10/10/2024 07:09:17 10/08/1910/09/2024 CBC WITH DIFFE RENTI AL/PL ATELE T eos 3 % notest ab. Not Available [facility] ([facility]) [address] [facility], [place], [address], 10/10/2024 07:09:17 10/08/1910/09/2024 CBC WITH DIFFE RENTI AL/PL ATELE T basos 1 % notest ab. Not Available [facility] ([facility]) [address] [facility], [place], [address], 10/10/2024 07:09:17 10/08/1910/09/2024 CBC WITH DIFFE RENTI AL/PL ATELE T neutrophils (absolute) 2.5 x10e3 /uL 1.4-7. 0 Not Available [facility] ([facility]) [address] [facility], [place], [address], 10/10/2024 07:09:17 10/08/1910/09/2024 CBC WITH DIFFE RENTI AL/PL ATELE T lymphs (absolute) 1.3 x10e3 /uL 0.7-3. 1 Not Available [facility] ([facility]) [address] [facility], [place], [address], 10/10/2024 07:09:17 10/08/1910/09/2024 CBC WITH DIFFE RENTI AL/PL ATELE T monocytes(ab solute) 0.5 x10e3 /uL 0.1-0. 9 Not Available [facility] ([facility]) [address] [facility], [place], [address], 10/10/2024 07:09:17 10/08/1910/09/2024 CBC WITH DIFFE RENTI AL/PL ATELE T eos (absolute) 0.1 x10e3 /uL 0.0-0. 4 Not Available [facility] ([facility]) [address] [facility], [place], [address], 10/10/2024 07:09:17 10/08/19 25 10/09/2024 CBC WITH DIFFE RENTI AL/PL ATELE T baso (absolute) 0.0 x10e3 /uL 0.0-0. 2 Not Available [facility] ([facility]) [address] [facility], [place], [address], 10/10/2024 07:09:17 10/08/19 25 10/09/2024 CBC WITH DIFFE RENTI AL/PL ATELE T immature granulocytes 1 % notest ab. Not Available [facility] ([facility]) [address] [facility], [place], [address], 10/10/2024 07:09:17 10/08/19 25 10/09/2024 CBC WITH DIFFE RENTI AL/PL ATELE T immature grans (abs) 0.0 x10e3 /uL 0.0-0. 1 Not Available [facility] ([facility]) [address] [facility], [place], [address], 10/10/2024 07:09:17 07/13/20 24 11/24/2019 colon oscop y scree wilber (PROC ) No observ ation record ed. BARCODE Not Available 2023 11:29:42 Result Notes None recorded. Problems Name Problem SNOMED Code Status Onset Date Resolution Date Notes Provider Name and Address Organization Details Recorded Time Pneumococcal vaccination declined 307415855 Active 2023 Marjan Candelaria MD Attn: Dejah mendez,[address] [place], [address], [facility] 20:35:12 SARS-CoV-2 vaccination declined 7282411333 Active 2023 Marjan Candelaria MD Attn: Dejah mendez,[address] [facility], [place], [address], [place] [facility] 4 20:35:15 Influenza vaccination declined 606329017 Active 2023 Marjan Candelaria MD Attn: Dejah mendez,[address] [facility], [place], [address], [place] [facility] 4 20:35:16 Insomnia 451691161 Active 2023 Marjan Candelaria MD Attn: Dejah mendez,[address] [facility], [place], [address], [place] [facility] 4 20:35:17 Anxiety 67088242 Active 2023 Marjan Candelaria MD Attn: Dejah mendez,[address] [facility], [place], [address], [place] - [facility] 4 20:35:19 Gastroesophag eal reflux disease without esophagitis 699619320 Active 2023 Marjan Candelaria MD Attn: Dejah mendez,[address] [facility], [place] [place], [address], [place] [facility] 4 20:35:28 Problem Notes None recorded. Procedures Surgical History None recorded. Imaging Results Imaging Date Name Status LastModified by Organiz ation Details LastModified Time 11/24/2019 colonoscopy screening (PROC) completed BARCODE Information not available 07/13/2024 11:29:42 Procedure Notes None recorded. Medical Equipment None Reported. Allergies Allergen ID Allergen Name Allergen Category Reaction Reaction Severity Criticality Documentation Date Start Date Code Code System Note Provider Name and Address Organization Details Recorded Time 397134 iodine medicatio n dyspnea edema Not available Not available Not available 01/02/2024 5933 RxNorm Barby Woods MA [facility], [place] - [facility] 4 10:41:31 Medications Name Sig Start Date Stop Date Status Note LastModified by Organization Details LastModified Time doxycycline hyclate 100 mg capsule TAKE 1 CAPSULE BY MOUTH TWICE DAILY FOR 7 DAYS 01/01 completed Not Available Not Available Not Available prednisone 20 mg tablet TAKE 2 TABLETS BY MOUTH DAILY WITH FOOD FOR 5 DAYS 07/02 completed Not Available Not Available Not Available prochlorper azine maleate 10 mg tablet TAKE 1 TABLET BY MOUTH FOUR TIMES DAILY NEEDED active Not Available Not Available No t Available lorazepam 0.5 mg tablet TAKE 1 TABLET BY MOUTH TWICE DAILY active Not Available Not Available No t Available trazodone 150 mg tablet TAKE 1 AND 1/2 TABLETS BY MOUTH EVERY DAY AT BEDTIME active Not Available Not Available No t Available escitalopra m 10 mg tablet TAKE 1 TABLET BY MOUTH DAILY 10/08 completed Not Available Not Available Not Available escitalopra m 20 mg tablet TAKE 1 TABLET BY MOUTH EVERY DAY active Not Available Not Available No t Available bupropion HCl XL 300 mg 24 hr tablet, extended release TAKE 1 TABLET BY MOUTH EVERY MORNING active Not Available Not Available No t Available bupropion HCl XL 150 mg 24 hr tablet, extended release TAKE 1 TABLET BY MOUTH DAILY IN THE MORNING active Not Available Not Available No t Available dexlansopra zole 60 mg capsule,bip hase delayed release TAKE 1 CAPSULE BY MOUTH EVERY DAY 2024 active Not Available Not Available Not Avai lable Paxlovid 300 mg (150 mg x 2)-100 mg tablets in a dose pack TAKE 2 NIRMATREL VIR TABLETS AND 1 RITONAVIR TABLET TOGETHER BY MOUTH TWICE DAILY FOR 5 DAYS 01/01 completed Not Available Not Available Not Available Vitals Date Recorded Body height Body mass index (BMI) Body weight Heart rate Oxygen saturation Oxygen saturation in Arterial blood by Pulse oximetry Systolic blood pressure Diastolic blood pressure Provider Name and Address Organization Details Last Updated DateTime 4 187.96 cm 26.3 kg/m2 50541.4 4 g 59 /min 98 % 98 % 120 mm[Hg] 80 mm[Hg] Barby Woods [place] - [facility] 4 10:47:39 Date Recorded Body height Body mass index (BMI) Body weight Heart rate Oxygen saturation Oxygen saturation in Arterial blood by Pulse oximetry Systolic blood pressure Diastolic blood pressure Provider Name and Address Organization Details Last Updated DateTime 4 187.96 cm 25.3 kg/m2 62089.7 g 58 /min 96 % 96 % 124 mm[Hg] 70 mm[Hg] Ale Head [place] - [facility] 4 11:25:21 Date Recorded Body height Body mass index (BMI) Body weight Heart rate [id number]|2025-01-20 07:45:42|2025-01-20 07:45:42|[id number]||||"Anes - Initial Pre Proc Eval Procedure: Operation [...] have been reviewed as part of the pre-operative evaluation. [facility] Past Medical History Medical History (Updated 01/20/25 @ 07:49 by Juan Krishna MD) GERD (gastroesophageal reflux disease) Depression Anxiety Surgical History Surgical History (Updated 01/20/25 @ 07:49 by Juan Krishna MD) History of esophagogastroduodenoscopy (EGD) H/O [...] have been reviewed as part of the pre-operative evaluation. Informed Consent: The patient's anesthetic plan and its attendant risks and benefits were discussed with the patient/family/POA. Questions were solicited and answers provided to the satisfaction of the patient/family/POA."
--- OUTSIDE RECORDS SUMMARY | 2025-01-20 00:04 | XMS_ITS | Patient Health Record ---
Author Organization [facility] Address [address] [facility] [address] [place] [address] Care Team Providers Care Vice President Of Brand Management Name Role Phone Vish Candelaria MD Primary Care Provider UnavailSpike Billings Unavailable [phone] Migration, Provider Unavailable Unavailable Allergies Allergen (clinical drug ingredient) Drug/Non Drug Allergy documented on EMR Reaction Allergy Type Onset Date Status Iodine Unknown Drug Allergy 11/22/2023 Active Results Component Value Reference Range Notes UDT Reviewed date:01/04/2025 11:14:10 AM Interpretation: Performing Lab: Notes/Report: THC N 0 - 50 ng/ml Cocaine N 0 - 300 ng/ml Amphetamine N 0 - 1000 ng/ml Buprenorphine (BUP) N 0 - 10 ng/ml Secobarbital (Bar) N 0 - 300 ng/ml Oxazepam (BZO) P 0 - 300 ng/ml 1-nwdhslwttm-4,9-mfmddafw-5, 3-diphenylpyr rolidine (EDDP) N 0 - 300 ng/ml Methamphetamine (MET) N 0 - 1000 ng/ml Methylenedioxymethamphetamine (MDMA) N 0 - 500 ng/ml Morphine (MOP 300/WXV1100) N 0 - 300 ng/ml Methadone (MTD) N 0 - 300 ng/ml Phencyclidine (PCP) N 0 - 25 ng/ml Nortriptyline (TCA) N 0 - 1000 ng/ml Oxycodone N 0 - 300 ng/ml x N 0 - 300 ng/ml Benzodiazepines Reviewed date:01/08/2025 01:37:17 PM Interpretation: Performing Lab:[address] [place] [address], [address] [place] [address], [facility], Director - [id number] Notes/Report: An exception occurred while processing this report and so it has incomplete data. Please contact [employer] for assistance. Not Medicated Consistent Not Medicated Consistent Not Medicated Consistent Not Medicated Consistent Not Medicated Consistent Medicated Consistent Not Medicated Consistent Not Medicated Consistent Not Medicated Consistent Not Medicated Consistent 7-Aminoclonazepam NEGATIVE 20.0 ng/mL Temazepam NEGATIVE 40.0 ng/mL Oxazepam NEGATIVE 40.0 ng/mL Midazolam NEGATIVE 40.0 ng/mL Lorazepam 150.5 40.0 ng/mL Nordiazepam NEGATIVE 40.0 ng/mL Diazepam NEGATIVE 40.0 ng/mL Clonazepam NEGATIVE 20.0 ng/mL Hydroxyalprazolam NEGATIVE 20.0 ng/mL Alprazolam NEGATIVE 20.0 ng/mL PDF Report CE_OUT_RAW_COMMON_S RC_ORU Validity Testing Reviewed date:01/08/2025 01:37:17 PM Interpretation: Performing Lab: Notes/Report: Not Medicated Consistent Not Medicated Consistent Not Medicated Consistent Not Medicated Consistent Specific [place] 1.017 1.003 - 1.030 pH 6.0 3.0 - 10.9 Oxidants -13 200 g/mL Creatinine 120.9 20.0 - 300.0 mg/dL Reason For Referral No Information Medications Medication SIG (Take, Route, Frequency, Duration) Notes Start Date End Date Status buPROPion HCl ER (XL) 300 MG TAKE 1 TABL ET BY MOUTH EVERY MORNING for 90 Active traZODone HCl 150 MG 1.5 tablet at bedti me orally Once a day for 90 days Active Dexlansoprazole 60 MG TAKE 1 CAPSULE BY MOUTH DAILY Oral for 90 Days Active Prochlorperazine Maleate 10 MG TAKE 1 TABLET BY MOUTH FOUR TIMES DAILY NEEDED Oral for 90 Days Active Escitalopram Oxalate 10 MG TAKE 1 TABLET BY MOUTH DAILY for 90 Active Escitalopram Oxalate 10 MG 1 tablet Oral Once a day for 90 days Active LORazepam 0.5 MG 1 tablet Oral twice a day for 30 days 01/04/2025 Active buPROPion HCl ER (XL) 300 MG 1 tablet ev hipolito morning Oral Once a day for 90 days Active Social History Tobacco Use: Social History Observation Description Date Details (start date - stop date) Former Smoker NA - NA Sex Assigned At : Social History Observation Description Sex Assigned At Male Tobacco Control (Standard) Question Answer Notes Tobacco use: Former smoker Problems Problem Type SNOMED Code ICD Code Onset Dates Problem Status W/U Status Risk Notes Problem Moderate recurrent major depression (92190918) Major depressive disorder, recurrent, moderate (F33.1) 4 Active confirmed Problem Generalized anxiety disorder (71475034) Generalized anxiety disorder (F41.1) 4 Active confirmed Problem Primary insomnia (6304968) Primary insomnia (F51.01) 4 Active confirmed Problem Gastro-esophagea l reflux disease without esophagitis (220387363) Gastro-esophage al reflux disease without esophagitis (K21.9) 4 Active confirmed Vital Signs Heart Rate 67 /min 01/04/2025 Height-cm 187.96 cm 01/04/2025 Blood pressure diastolic 88 mm Hg 01/04/2025 Weight-kg 86.64 kg 01/04/2025 Height 74.00 in 01/04/2025 Blood pressure systolic 140 mm Hg 01/04/2025 Weight 191 lbs 01/04/2025 BMI 24.52 kg/m2 01/04/2025 Encounters Encounter Location Date Provider Diagnosis [facility] [address] [address] 03/27/2024 Spike Raymond Major depressive disorder, recurrent, moderate F33.1 ; Primary insomnia F51.01 ; Gastro-esophageal reflux disease without esophagitis K21.9 and Generalized anxiety disorder F41.1 [facility] [address] [address] 07/27/2024 Spike Raymond Major depressive disorder, recurrent, moderate F33.1 ; Primary insomnia F51.01 ; Gastro-esophageal reflux disease without esophagitis K21.9 and Generalized anxiety disorder F41.1 [facility] [address] [address] 01/04/2025 Spike Raymond Major depressive disorder, recurrent, moderate F33.1 ; Primary insomnia F51.01 ; Gastro-esophageal reflux disease without esophagitis K21.9 ; Generalized anxiety disorder F41.1 ; Encounter for screening for depression Z13.31 ; Encounter for screening for cardiovascular disorders Z13.6 and Dietary counseling and surveillance Z71.3 [facility] [employer] [address] [address] 01/25/2024 Provider Migration [facility] [address] [address] [place] [address] 01/26/2024 Provider Migration Assessments Encounter Date Diagnosis (ICD Code) Assessment Notes Treatment Notes Treatment Clinical Notes Section Notes 01/04/2025 Major depressive disorder, recurrent, moderate (ICD-10 - F33.1) 07/27/2024 Major depressive disorder, recurrent, moderate (ICD-10 - F33.1) Depression - Assessment: Patient reports overall improvement in mood and decrease in depressive symptoms since starting prescribed medications. Occasional days with low motivation still occur, but less frequently and severely than before. - Plan: - Continue Bupropion XL 300 mg in the morning and Escitalopram 10 mg daily. - Schedule follow-up appointment in 5 months to monitor progress and adjust medications if necessary. Anxiety - Assessment: Patient reports decrease in anxiety symptoms and less frequent use of Lorazepam due to improvement in overall mental health. - Plan: - Continue Lorazepam as needed for anxiety episodes. Patient reports using it once a day, sometimes twice a day, down from twice daily previously. - Encourage patient to engage in healthy coping strategies, such as walking with his , to manage anxiety. Hypertension (resolved) - Assessment: Patient reports history of high blood pressure, now resolved after significant weight loss (from 235-240 lbs to 190 lbs) and lifestyle changes. Blood pressure is now typically around 120/80 or 126/78. - Plan: - No longer taking Bistolic, which was previously prescribed for hypertension. - No further intervention needed at this time. - Encourage patient to maintain a healthy lifestyle to prevent recurrence of hypertension. Insomnia - Assessment: Patient currently taking Trazodone 150 mg (1.5 tablets) for sleep, prescribed by Dr. Candelaria. - Plan: - Continue Trazodone as prescribed. - Monitor for any side effects or changes in sleep quality. General Health - Assessment: Patient reports no new medical concerns since last visit. Blood pressure well-controlled, does not smoke or drink. Cholesterol levels have improved with weight loss and lifestyle changes. - Plan: - Encourage patient to continue maintaining a healthy lifestyle, including regular exercise and a balanced diet. Medication Refill - Plan: - Refill prescriptions for Bupropion XL, Escitalopram, and Lorazepam, and send them to [facility] in [place]. - Coordinate with Dr. Candelaria regarding Trazodone prescription if needed. Follow-up - Plan: - Schedule follow-up appointment in 5 months to assess patient's progress and make necessary adjustments to treatment plan. - Advise patient to contact clinic if any concerns or changes in condition arise before scheduled follow-up appointment. 03/27/2024 Major depressive disorder, recurrent, moderate (ICD-10 - F33.1) Depression and Anxiety - Assessment: Patient reports having good days and not so good days, but overall managing well with the current medication regimen consisting of Bupropion XL 300 mg daily, Escitalopram 10 mg daily, and Lorazepam 0.5 mg twice a day. - Plan: Continue the current medication regimen. Patient is encouraged to contact the clinic if symptoms worsen or if there are any concerns. Insomnia - Assessment: Patient reports occasional trouble sleeping but is overall satisfied with the current management of Trazodone 150 mg (1.5 tablets) at bedtime. - Plan: Continue Trazodone 150 mg (1.5 tablets) at bedtime. Gastroesophageal Reflux Disease (GERD) - Assessment: Patient is currently taking GERD medication. - Plan: Continue the current GERD medication regimen. Iodine Allergy - Assessment: Patient confirms allergy to iodine. - Plan: Continue to avoid iodine-containing products and medications. Follow-up - Plan: - Schedule a follow-up appointment in four months. - Patient is informed about the new walk-in clinic and is encouraged to utilize it if needed. - Prescriptions will be sent to [facility] in [place]. 07/27/2024 Primary insomnia (ICD-10 - F51.01) Depression - Assessment: Patient reports overall improvement in mood and decrease in depressive symptoms since starting prescribed medications. Occasional days with low motivation still occur, but less frequently and severely than before. - Plan: - Continue Bupropion XL 300 mg in the morning and Escitalopram 10 mg daily. - Schedule follow-up appointment in 5 months to monitor progress and adjust medications if necessary. Anxiety - Assessment: Patient reports decrease in anxiety symptoms and less frequent use of Lorazepam due to improvement in overall mental health. - Plan: - Continue Lorazepam as needed for anxiety episodes. Patient reports using it once a day, sometimes twice a day, down from twice daily previously. - Encourage patient to engage in healthy coping strategies, such as walking with his , to manage anxiety. Hypertension (resolved) - Assessment: Patient reports history of high blood pressure, now resolved after significant weight loss (from 235-240 lbs to 190 lbs) and lifestyle changes. Blood pressure is now typically around 120/80 or 126/78. - Plan: - No longer taking Bistolic, which was previously prescribed for hypertension. - No further intervention needed at this time. - Encourage patient to maintain a healthy lifestyle to prevent recurrence of hypertension. Insomnia - Assessment: Patient currently taking Trazodone 150 mg (1.5 tablets) for sleep, prescribed by Dr. Candelaria. - Plan: - Continue Trazodone as prescribed. - Monitor for any side effects or changes in sleep quality. General Health - Assessment: Patient reports no new medical concerns since last visit. Blood pressure well-controlled, does not smoke or drink. Cholesterol levels have improved with weight loss and lifestyle changes. - Plan: - Encourage patient to continue maintaining a healthy lifestyle, including regular exercise and a balanced diet. Medication Refill - Plan: - Refill prescriptions for Bupropion XL, Escitalopram, and Lorazepam, and send them to [facility] in [place]. - Coordinate with Dr. Candelaria regarding Trazodone prescription if needed. Follow-up - Plan: - Schedule follow-up appointment in 5 months to assess patient's progress and make necessary adjustments to treatment plan. - Advise patient to contact clinic if any concerns or changes in condition arise before scheduled follow-up appointment. 03/27/2024 Primary insomnia (ICD-10 - F51.01) Depression and Anxiety - Assessment: Patient reports having good days and not so good days, but overall managing well with the current medication regimen consisting of Bupropion XL 300 mg daily, Escitalopram 10 mg daily, and Lorazepam 0.5 mg twice a day. - Plan: Continue the current medication regimen. Patient is encouraged to contact the clinic if symptoms worsen or if there are any concerns. Insomnia - Assessment: Patient reports occasional trouble sleeping but is overall satisfied with the current management of Trazodone 150 mg (1.5 tablets) at bedtime. - Plan: Continue Trazodone 150 mg (1.5 tablets) at bedtime. Gastroesophageal Reflux Disease (GERD) - Assessment: Patient is currently taking GERD medication. - Plan: Continue the current GERD medication regimen. Iodine Allergy - Assessment: Patient confirms allergy to iodine. - Plan: Continue to avoid iodine-containing products and medications. Follow-up - Plan: - Schedule a follow-up appointment in four months. - Patient is informed about the new walk-in clinic and is encouraged to utilize it if needed. - Prescriptions will be sent to [facility]. 01/04/2025 Primary insomnia (ICD-10 - F51.01) 01/04/2025 Gastro-esophageal reflux disease without esophagitis (ICD-10 - K21.9) 03/27/2024 Gastro-esophageal reflux disease without esophagitis (ICD-10 - K21.9) Depression and Anxiety - Assessment: Patient reports having good days and not so good days, but overall managing well with the current medication regimen consisting of Bupropion XL 300 mg daily, Escitalopram 10 mg daily, and Lorazepam 0.5 mg twice a day. - Plan: Continue the current medication regimen. Patient is encouraged to contact the clinic if symptoms worsen or if there are any concerns. Insomnia - Assessment: Patient reports occasional trouble sleeping but is overall satisfied with the current management of Trazodone 150 mg (1.5 tablets) at bedtime. - Plan: Continue Trazodone 150 mg (1.5 tablets) at bedtime. Gastroesophageal Reflux Disease (GERD) - Assessment: Patient is currently taking GERD medication. - Plan: Continue the current GERD medication regimen. Iodine Allergy - Assessment: Patient confirms allergy to iodine. - Plan: Continue to avoid iodine-containing products and medications. Follow-up - Plan: - Schedule a follow-up appointment in four months. - Patient is informed about the new walk-in clinic and is encouraged to utilize it if needed. - Prescriptions will be sent to [facility]. 07/27/2024 Gastro-esophageal reflux disease without esophagitis (ICD-10 - K21.9) Depression - Assessment: Patient reports overall improvement in mood and decrease in depressive symptoms since starting prescribed medications. Occasional days with low motivation still occur, but less frequently and severely than before. - Plan: - Continue Bupropion XL 300 mg in the morning and Escitalopram 10 mg daily. - Schedule follow-up appointment in 5 months to monitor progress and adjust medications if necessary. Anxiety - Assessment: Patient reports decrease in anxiety symptoms and less frequent use of Lorazepam due to improvement in overall mental health. - Plan: - Continue Lorazepam as needed for anxiety episodes. Patient reports using it once a day, sometimes twice a day, down from twice daily previously. - Encourage patient to engage in healthy coping strategies, such as walking with his , to manage anxiety. Hypertension (resolved) - Assessment: Patient reports history of high blood pressure, now resolved after significant weight loss (from 235-240 lbs to 190 lbs) and lifestyle changes. Blood pressure is now typically around 120/80 or 126/78. - Plan: - No longer taking Bistolic, which was previously prescribed for hypertension. - No further intervention needed at this time. - Encourage patient to maintain a healthy lifestyle to prevent recurrence of hypertension. Insomnia - Assessment: Patient currently taking Trazodone 150 mg (1.5 tablets) for sleep, prescribed by Dr. Candelaria. - Plan: - Continue Trazodone as prescribed. - Monitor for any side effects or changes in sleep quality. General Health - Assessment: Patient reports no new medical concerns since last visit. Blood pressure well-controlled, does not smoke or drink. Cholesterol levels have improved with weight loss and lifestyle changes. - Plan: - Encourage patient to continue maintaining a healthy lifestyle, including regular exercise and a balanced diet. Medication Refill - Plan: - Refill prescriptions for Bupropion XL, Escitalopram, and Lorazepam, and send them to [facility] in [place]. - Coordinate with Dr. Candelaria regarding Trazodone prescription if needed. Follow-up - Plan: - Schedule follow-up appointment in 5 months to assess patient's progress and make necessary adjustments to treatment plan. - Advise patient to contact clinic if any concerns or changes in condition arise before scheduled follow-up appointment. 03/27/2024 Generalized anxiety disorder (ICD-10 - F41.1) Depression and Anxiety - Assessment: Patient reports having good days and not so good days, but overall managing well with the current medication regimen consisting of Bupropion XL 300 mg daily, Escitalopram 10 mg daily, and Lorazepam 0.5 mg twice a day. - Plan: Continue the current medication regimen. Patient is encouraged to contact the clinic if symptoms worsen or if there are any concerns. Insomnia - Assessment: Patient reports occasional trouble sleeping but is overall satisfied with the current management of Trazodone 150 mg (1.5 tablets) at bedtime. - Plan: Continue Trazodone 150 mg (1.5 tablets) at bedtime. Gastroesophageal Reflux Disease (GERD) - Assessment: Patient is currently taking GERD medication. - Plan: Continue the current GERD medication regimen. Iodine Allergy - Assessment: Patient confirms allergy to iodine. - Plan: Continue to avoid iodine-containing products and medications. Follow-up - Plan: - Schedule a follow-up appointment in four months. - Patient is informed about the new walk-in clinic and is encouraged to utilize it if needed. - Prescriptions will be sent to [facility]. 07/27/2024 Generalized anxiety disorder (ICD-10 - F41.1) Depression - Assessment: Patient reports overall improvement in mood and decrease in depressive symptoms since starting prescribed medications. Occasional days with low motivation still occur, but less frequently and severely than before. - Plan: - Continue Bupropion XL 300 mg in the morning and Escitalopram 10 mg daily. - Schedule follow-up appointment in 5 months to monitor progress and adjust medications if necessary. Anxiety - Assessment: Patient reports decrease in anxiety symptoms and less frequent use of Lorazepam due to improvement in overall mental health. - Plan: - Continue Lorazepam as needed for anxiety episodes. Patient reports using it once a day, sometimes twice a day, down from twice daily previously. - Encourage patient to engage in healthy coping strategies, such as walking with his , to manage anxiety. Hypertension (resolved) - Assessment: Patient reports history of high blood pressure, now resolved after significant weight loss (from 235-240 lbs to 190 lbs) and lifestyle changes. Blood pressure is now typically around 120/80 or 126/78. - Plan: - No longer taking Bistolic, which was previously prescribed for hypertension. - No further intervention needed at this time. - Encourage patient to maintain a healthy lifestyle to prevent recurrence of hypertension. Insomnia - Assessment: Patient currently taking Trazodone 150 mg (1.5 tablets) for sleep, prescribed by Dr. Candelaria. - Plan: - Continue Trazodone as prescribed. - Monitor for any side effects or changes in sleep quality. General Health - Assessment: Patient reports no new medical concerns since last visit. Blood pressure well-controlled, does not smoke or drink. Cholesterol levels have improved with weight loss and lifestyle changes. - Plan: - Encourage patient to continue maintaining a healthy lifestyle, including regular exercise and a balanced diet. Medication Refill - Plan: - Refill prescriptions for Bupropion XL, Escitalopram, and Lorazepam, and send them to [facility] in [place]. - Coordinate with Dr. Candelaria regarding Trazodone prescription if needed. Follow-up - Plan: - Schedule follow-up appointment in 5 months to assess patient's progress and make necessary adjustments to treatment plan. - Advise patient to contact clinic if any concerns or changes in condition arise before scheduled follow-up appointment. 01/04/2025 Generalized anxiety disorder (ICD-10 - F41.1) 01/04/2025 Encounter for screening for depression (ICD-10 - Z13.31) 01/04/2025 Encounter for screening for cardiovascular disorders (ICD-10 - Z13.6) 01/04/2025 Dietary counseling and surveillance (ICD-10 - Z71.3) 01/04/2025 Reinaldo Espinoza is a patient with a history of anxiety and depression, presenting for medication management and follow-up after running out of lorazepam for 3 days. Anxiety Disorder Assessment: Patient reports increased anxiety after running out of lorazepam for 3 days. He has been using exercise and oxazepam to manage symptoms. No reported panic attacks, but patient notes tendency to overthink, leading to high anxiety. Patient describes being a homebody and avoiding stressful situations to manage symptoms. Current medications include lorazepam 0.5 mg twice daily for anxiety management. Plan: - Renew lorazepam 0.5 mg PO BID for 3 months - Continue current anxiety management strategies (exercise, stress avoidance) - Follow up in 3 months (around March 28) for medication review and refill Depression Assessment: Patient reports doing well on current medication regimen for depression. No reported side effects or concerns. Current medications include bupropion 300 mg daily and escitalopram 10 mg daily. Plan: - Continue bupropion 300 mg PO daily - Continue escitalopram 10 mg PO daily Insomnia Assessment: Patient reports improved sleep with trazodone. Current dose is 150 mg (one and a half tablets) at bedtime. Plan: - Continue trazodone 150 mg PO at bedtime Medication Management Assessment: Patient ran out of lorazepam due to delayed follow-up. No reported withdrawal symptoms other than increased anxiety. Urine drug screen completed today. Plan: - Prescribe medications for 3-month supply - Schedule follow-up appointment before March 28 to prevent medication lapse - Review urine drug screen results (once available) Disclaimer: This note has been transcribed using speech recognition software and serves as a reflection of the patient's visit. While efforts have been made to ensure accuracy, there may be errors, including boat tester inaccuracies and misspellings of medication names. This document should not be considered a verbatim record, and any discrepancies should be verified with the provider. Plan Of Treatment Next Appt Details Provider Name:Spike Andrade , 04/07/2025 08:45:00 AM, [facility] [address] [facility] [address], [place], [address], Insurance Providers Payer Name Payer Address Payer Phone Subscriber Number Group Number Insured Name Patient Relationship to Insured Coverage Start Date Coverage End Date Medicare-I l Medicare [address] [facility] [place] [address] [id number] EDEL ESPINOZA Self - patient is the insured [facility] Medicare Supplement [address] [facility] [place] [address] [id number] EDEL ESPINOZA Self - patient is the insured Medical (General) History Medical History History ICD Code Problems: Gastroesophageal reflux diseas e Generalized anxiety disorder Moderate recurrent major depression Primary insomnia , Surgical History Surgery Date(Month/Year) Other 12/27/2014
[2025-01-20 07:10] VITALS: BP 154/88; PULSE 61; RESP 18; TEMP 36.8; O2SAT 100; BMI 23.0
[2025-01-20] MEDS: LACTATED RINGERS 1,000 ML 150 ML IV CONT (07:34)
--- NOTE | 2025-01-20 08:24 | PM.HPGS ---
History of Present Illness History of Present Illness Consent: Risks, benefits, and alternatives have been discussed and questions answered. Patient agrees to proceed with procedure. Chief complaint: GERD, Hx of polyps Narrative: Juan Acharya is a 69 year old male with gerd on dexilant and sore throat, previous EGD showed esophagitis, also h/o colon polyp about 3 years ago Review of Systems Review of Systems: All systems reviewed & are unremarkable except as noted in HPI and below PMFSH Past Medical History Medical History (Updated 01/20/25 @ 08:25 by Adilson Barreto MD) Colon polyp GERD (gastroesophageal reflux disease) Depression Anxiety Surgical History Surgical History (Updated 01/20/25 @ 07:49 by Juan Krishna MD) History of esophagogastroduodenoscopy (EGD) H/O colonoscopy H/O elbow surgery Social History Social History Smoking status: Former smoker Tobacco type: cigarettes Alcohol intake: former Substance use: current Substance use type: does not use Living arrangements: with family Spiritual care concerns: No Meds Home Medications and Allergies Home Medications Medication Instructions Recorded Confirmed Type bupropion HCl 150 mg 24 hr tablet, 150 mg PO .am 01/07/25 01/20/25 History extended release dexlansoprazole 60 mg 60 mg PO DAILY 01/07/25 01/20/25 History capsule,biphase delayed release escitalopram oxalate 10 mg tablet 10 mg PO DAILY 01/07/25 01/20/25 History lorazepam 0.5 mg tablet 0.5 mg PO Q12H 01/07/25 01/20/25 History Allergies Allergy/AdvReac Type Severity Reaction Status Date / Time ascorbic acid Allergy Mild Verified 01/30/13 05:32 bromelains Allergy Mild Verified 01/30/13 05:32 iodine Allergy Mild Verified 01/30/13 05:32 Vital Signs Vital Signs - 24 hr 01/20/25 07:10 Temperature 98.2 F Pulse Rate 61 Respiratory Rate 18 Blood Pressure 154/88 H Pulse Oximetry 100 Oxygen Delivery Room Air Exam Const: General: comfortable and no acute distress HENMT: Face/Nose/Sinus: Normal nares present Eyes: General: appearance normal, both eyes and all related structures Neck: Neck: no JVD Resp: Auscultation: clear to auscultation bilaterally Cardio: Rate: regular rate Rhythm: regular rhythm GI: Inspection: non-distended GI Palp: Yes Soft to palpation Skin: General skin exam: normal color Neuro: General: gait normal Speech: normal speech Extrem: General: normal to inspection Psych: Mental Status: mental status grossly normal Assessment and Plan Assessment and plan (1) GERD (gastroesophageal reflux disease): Code(s): K21.9 - Gastro-esophageal reflux disease without esophagitis Status: Acute Assessment and Plan: egd with bx on ppi (2) Colon polyp: Code(s): K63.5 - Polyp of colon Status: Acute Assessment and Plan: colonoscopy
[2025-01-20] MEDS: BENZOCAINE (*SP) 60 ML SPRAY CAN (HURRICAINE) 1 SPRAY MUCOUS MEM (08:28)
--- NOTE | 2025-01-20 08:35 | SUR.OPER ---
EGD END 832 COLONOSCOPY START 837
[2025-01-20 08:51] VITALS: BP 131/76; PULSE 52; RESP 20; O2SAT 100
[2025-01-20 09:01] VITALS: BP 136/77; PULSE 51; RESP 18; O2SAT 100
[2025-01-20 09:11] VITALS: BP 150/83; PULSE 52; RESP 18; O2SAT 100
== END 2025-01-20 09:13 | disposition home or self-care (01) ==
PROVIDERS: PCP Internal Medicine; Referring Provider Internal Medicine; Visit Provider Internal Medicine Gastroenterology
PROC: 0DJ08ZZ Inspection of Upper Intestinal Tract, Via Natural or Artificial Opening Endoscopic (ICD-10-PCS; CPT 45378; principal; 2025-01-20 08:30)
DX: Z12.11 Encounter for screening for malignant neoplasm of colon (principal); K21.9 Gastro-esophageal reflux disease without esophagitis; K64.8 Other hemorrhoids; K57.30 Diverticulosis of large intestine without perforation or abscess without bleeding; F32.A Depression, unspecified; F41.9 Anxiety disorder, unspecified; Z98.890 Other specified postprocedural states; Z86.0100 Personal history of colon polyps, unspecified; Z87.891 Personal history of nicotine dependence
CPT/HCPCS: 43239; G0105; 88305; J2003; J2704; J7120

== ENCOUNTER → 2025-03-01 11:23 | Outpatient (REF) | payer MEDICARE, SELFPAY ==
--- NOTE | 2025-03-01 11:23 | S_PTH ---
PATIENT: Juan Acharya LOC: [facility] U#:[id number] AGE/SX: 70/M ROOM: RE03/01/[address]: Stephon Thibodeaux MD : [id number] BED: DIS: SPEC #: [id number] RECD: 03/01/25 13:36 STATUS: BLANQUITA REArnaldo #: [id number] DUNIA: 03/01/25 11:[address]: Stephon Thibodeaux DEPT: [facility] Surgical RECD BY: Jocelyn Chin ENTERED: 03/01/25 13:36 SP TYPE: Surgical OTHR DR: Vish CandelariaMD Tissues: A - Skin Procedures: Hematoxylin and Eosin Stain Gross and Microscopic Level 4
== END ==
LOC: ANHLAB 11:23
PROVIDERS: PCP Internal Medicine; Visit Provider Plastic Surgery
DX: C44.622 Squamous cell carcinoma of skin of right upper limb, including shoulder (principal)
CPT/HCPCS: 88305

== ENCOUNTER 2025-04-06 07:44 | Outpatient (CLI) | payer MEDICARE, SELFPAY ==
--- NOTE | ~2025-04-06 | CT_ITS ---
Clinical Indication: Abnormal weight loss CT Scan of the Chest, Abdomen, and Pelvis with Contrast: Technique: Contiguous sections were acquired throughout the chest, abdomen, and pelvis after intraven ous administration of 100 cc of Omnipaque 350. Dose reduction technique was used on this scan by dedrick bey automated exposure control and iterative reconstruction technique. The dose-length product (DL P) was 537.54 mGy-cm. Findings: There is no evidence of any significant mediastinal, hilar or axillary lymphadenopathy. The mediastin al soft tissues and vascular structures appear normal. There is no evidence of pleural or pericardial effusion. The lungs are clear. No pulmonary nodules or infiltrates are noted. The liver, spleen, pancreas, gallbladder, adrenals and kidneys are within normal limits. No evidence of aortic aneurysm. No lymphadenopathy. No bowel obstruction or bowel wall thickening. There is no evidence to suggest acute appendicitis. Urinary bladder is unremarkable. No pelvic mass evident. No ascites. Impression: No significant abnormalities seen. Reviewed, dictated and finalized at location . Impression: No significant abnormalities seen.
--- OUTSIDE RECORDS SUMMARY | 2025-04-06 07:49 | XMS_ITS | Data Portability ---
Author Organization [place] [facility] [employer], Main Office Address [address] [place] [address] Assessment Encounter Date Assessment Date Assessment LastModified by Organization Details LastModified Time 03/28/2023 03/28/2023 Blood work diagnosis discussed continue current therapy follow-up 6 months [email or web address] Not available 03/29/2023 18:31:30 05/20/2023 05/20/2023 X-ray nothing acute tetanus shot doxycycline follow-up 4 days [email or web address] Not available 05/20/2023 21:41:41 05/23/2023 05/23/2023 Keep regular appointment he is getting better every day he says he will finish the antibiotics which she had some superficial cellulitis as improving nicely if it does not completely go away he will let me know declines all immunizations and screenings on his wellness part see me at his regularly scheduled appointment [email or web address] Not available 05/26/2023 15:26:42 09/26/2023 09/26/2023 Continue current therapy follow-up 6 months [email or web address] Not available 09/26/2023 14:54:00 Plan of Treatment [...] doxycycline hyclate 100 mg capsule 2022 023 [email or web address] [id number], [address] [place], [place], [id number], 16:44:55 Patient TargetsNo targets recorded. Patient Instructions Encounter Date Encounter Id Patient Instructions Last Modified By Organization Details Last Modified Time 05/23/2023 [id number] dementia rating scale-2* Not available 05/26/2023 15:26:59 alcohol misuse* [email or web address] Not available 05/26/2023 15:26:59 depression screening* [email or web address] Not available 05/26/2023 15:26:59 Timed Up and Go test (TUG)* Not available 05/26/2023 15:26:59 multi-dimensiona l health assessment questionnaire* [email or web address] Not available 05/26/2023 15:26:59 Personalized [facility] lt Plan and Screening Recommendations Advance Directives - Do you have one? No Not interested at this time Advance Directives - Do we have your advance directive on file in your health record? Primary Prevention/Interven tion (prevents or decreases the chance of common diseases from occurring) Smoking Risk: Non Smoker Alcohol Misuse Screening: Negative Weight: Overweight try to lose 10% of your body weight Physical activity: Appropriate physical activity Nutrition: Average Eat heart healthy diet Fall Risk (screened today): Low Vaccines Pneumococcal: Recommended today, but you have declined Influenza: Your next one in the fall of this year Chronic Disease Risks Stroke: Intermediate Risk Active diagnosis, Continue current treatment plan Heart Attack: Low risk I have no recommendations Clogging of the Arteries: Low risk I have no recommendations Diabetes: Low Risk I have no recommendations Secondary Prevention/Interven tion (detects treatable diseases before they may cause symptoms, disability, or ) Prostate Cancer Screening: up to date Colon Cancer Screening: Colonoscopy due 2032 Date Screening Last Performed: Eye Disease Screening: Your next exam in: doesn't go Dementia Risk: Low I have no recommendations Depression Screening: Negative Active diagnosis, Continue current treatment plan [email or web address] Not available 05/23/2023 15:05:37 Reason for Referral None Reported. Results Created Date Observation Date Name Description Value Unit Range Abnormal Flag Note LastModifiedBy Organization Detail LastModifiedTime 03/28/20 23 03/28/2023 CBC/C OMPLE TE BLD COUNT W/DIF F white blood cells 4.6 x10'3 /uL 4.2-10 .8 Not Available [facility] (Lab) [address] [place], [address], 03/28/2023 13:34:38 03/28/20 23 03/28/2023 CBC/C OMPLE TE BLD COUNT W/DIF F red blood cells 4.35 x10'6 /uL 4.10-5 .80 Not Available [facility] (Lab) [address] [place], [address], 03/28/2023 13:34:38 03/28/20 23 03/28/2023 CBC/C OMPLE TE BLD COUNT W/DIF F hemoglobin 13.5 g/dL 13.2-1 7.0 Not Available [facility] (Lab) [address] [place], [address], 03/28/2023 13:34:38 03/28/20 23 03/28/2023 CBC/C OMPLE TE BLD COUNT W/DIF F hematocrit 40.3 % 39.3-5 0.0 Not Available [facility] (Lab) [address] [place], [address], 03/28/2023 13:34:38 03/28/20 23 03/28/2023 CBC/C OMPLE TE BLD COUNT W/DIF F mean red cell volume 92.6 fL 80.0-9 7.0 Not Available [facility] (Lab) [address] [place], [address], 03/28/2023 13:34:38 03/28/20 23 03/28/2023 CBC/C OMPLE TE BLD COUNT W/DIF F mean red cell hemoglobin 31.0 pg 27.0-3 3.0 Not Available [facility] (Lab) [address] [place], [address], 03/28/2023 13:34:38 03/28/20 23 03/28/2023 CBC/C OMPLE TE BLD COUNT W/DIF F mean RBC HGB concentratio n 33.5 g/dL 31.0-3 6.0 Not Available [facility] (Lab) [address] [place], [address], 03/28/2023 13:34:38 03/28/20 23 03/28/2023 CBC/C OMPLE TE BLD COUNT W/DIF F red cell distribution width 11.9 % 11.8-1 5.5 Not Available [facility] (Lab) [address] [place], [address], 03/28/2023 13:34:38 03/28/20 23 03/28/2023 CBC/C OMPLE TE BLD COUNT W/DIF F platelets 196 x10'3 /uL 150-40 0 Not Available [facility] (Lab) [address] [place], [address], 03/28/2023 13:34:38 03/28/20 23 03/28/2023 CBC/C OMPLE TE BLD COUNT W/DIF F mean platelet volume 9.6 fL 9.0-12 .4 Not Available [facility] (Lab) [address] [place], [address], 03/28/2023 13:34:38 03/28/20 23 03/28/2023 CBC/C OMPLE TE BLD COUNT W/DIF F neutrophils 64.3 % 39.0-7 2.0 Not Available [facility] (Lab) [address] [place], [address], 03/28/2023 13:34:38 03/28/20 23 03/28/2023 CBC/C OMPLE TE BLD COUNT W/DIF F lymphocytes 22.2 % 16.0-4 7.0 Not Available [facility] (Lab) [address] [place], [address], 03/28/2023 13:34:38 03/28/20 23 03/28/2023 CBC/C OMPLE TE BLD COUNT W/DIF F monocytes 10.6 % 5.0-12 .0 Not Available [facility] (Lab) [address] [place], [address], 03/28/2023 13:34:38 03/28/20 23 03/28/2023 CBC/C OMPLE TE BLD COUNT W/DIF F eosinophils 1.9 % 1.0-7. 0 Not Available [facility] (Lab) [address] [place], [address], 03/28/2023 13:34:38 03/28/20 23 03/28/2023 CBC/C OMPLE TE BLD COUNT W/DIF F basophils 0.6 % 0.0-2. 0 Not Available [facility] (Lab) [address] [place], [address], 03/28/2023 13:34:38 03/28/20 23 03/28/2023 CBC/C OMPLE TE BLD COUNT W/DIF F immature granulocytes 0.4 % 0.00-0 .50 Not Available [facility] (Lab) [address] [place], [address], 03/28/2023 13:34:38 03/28/20 23 03/28/2023 CBC/C OMPLE TE BLD COUNT W/DIF F neutrophils, absolute count 2.97 x10'3 /uL 1.5-8. 0 Not Available [facility] (Lab) [address] [place], [address], 03/28/2023 13:34:38 03/28/20 23 03/28/2023 CBC/C OMPLE TE BLD COUNT W/DIF F lymphocytes, absolute count 1.03 x10'3 /uL 1.07-3 .43 low Not Available [facility] (Lab) [address] [place], [address], 03/28/2023 13:34:38 03/28/20 23 03/28/2023 CBC/C OMPLE TE BLD COUNT W/DIF F monocytes, absolute count 0.49 x10'3 /uL 0.29-0 .99 Not Available [facility] (Lab) [address] [place], [address], 03/28/2023 13:34:38 03/28/20 23 03/28/2023 CBC/C OMPLE TE BLD COUNT W/DIF F eosinophils, absolute count 0.09 x10'3 /uL 0.02-0 .53 Not Available [facility] (Lab) [address] [place], [address], 03/28/2023 13:34:38 03/28/20 23 03/28/2023 CBC/C OMPLE TE BLD COUNT W/DIF F basophils, absolute count 0.03 x10'3 /uL 0.01-0 .08 Not Available [facility] (Lab) [address] [place], [address], 03/28/2023 13:34:38 03/28/20 23 03/28/2023 CBC/C OMPLE TE BLD COUNT W/DIF F immature granulocytes ,absolute 0.02 x10'3 /uL 0.00-0 .05 Not Available [facility] (Lab) [address] [place], [address], 03/28/2023 13:34:38 03/28/20 23 03/28/2023 CBC/C OMPLE TE BLD COUNT W/DIF F nucleated red blood cells 0.0 % -0 Not Available [facility] (Lab) [address] [place], [address], 03/28/2023 13:34:38 03/28/20 23 03/28/2023 CBC/C OMPLE TE BLD COUNT W/DIF F NRBC# 0.00 x10'3 /uL Not Available [facility] (Lab) [address] [place], [address], 03/28/2023 13:34:38 03/28/20 23 03/28/2023 LIPID PANEL cholesterol 186 mg/dL 140-19 9 NIH SAQIB NSUS RECOM MENDA TION FOR NIKOS STERO L: ADULT CHILD LOW RISK: <200 <170 BORDE RLINE : <200- 239 ----- HIGH RISK: >240 >200 Not Available [facility] (Lab) [address] [place], [address], 03/28/2023 13:39:10 03/28/20 23 03/28/2023 LIPID PANEL triglyceride s 145 mg/dL 0-150 NIH SAQIB NSUS REPOR T RECOM MENDA TION FOR TRIGL YCERI RIMA: ADULT CHILD LOW RISK: <150 ----- BODER LINE: 150-1 99 ----- HIGH RISK: >200 ----- Not Available [facility] (Lab) [address] [place], [address], 03/28/2023 13:39:10 03/28/20 23 03/28/2023 LIPID PANEL HDL cholesterol 52 mg/dL 40- Not Available [facility] (Lab) [address] [place], [address], 03/28/2023 13:39:10 03/28/20 23 03/28/2023 LIPID PANEL [...] WILL NOT BE REPOR NINO. Not Available [facility] (Lab) [address] [place], [address], 03/28/2023 13:39:10 03/28/20 23 03/28/2023 COMPR EHENS CARTER METAB OLIC PANEL sodium 140 mmol/ L 137-14 5 Not Available [facility] (Lab) [address] [place], [address], 03/28/2023 13:39:16 03/28/20 23 03/28/2023 COMPR EHENS CARTRE METAB OLIC PANEL potassium 4.6 mmol/ L 3.5-5. 1 Not Available [facility] (Lab) [address] [place], [address], 03/28/2023 13:39:16 03/28/20 23 03/28/2023 COMPR EHENS CARTER METAB OLIC PANEL chloride 106 mmol/ L 98-107 Not Available [facility] (Lab) [address] [place], [address], 03/28/2023 13:39:16 03/28/20 23 03/28/2023 COMPR EHENS CARTER METAB OLIC PANEL carbon dioxide 27 mmol/ L 22-30 Not Available [facility] (Lab) [address] [place], [address], 03/28/2023 13:39:16 03/28/20 23 03/28/2023 COMPR EHENS CARTER METAB OLIC PANEL anion gap 11.6 mmol/ L 14-22 low Not Available [facility] (Lab) [address] [place], [address], 03/28/2023 13:39:16 03/28/20 23 03/28/2023 COMPR EHENS CARTER METAB OLIC PANEL glucose 80 mg/dL 70-99 Not Available [facility] (Lab) [address] [facility] [place], [address], 03/28/2023 13:39:16 03/28/20 23 03/28/2023 COMPR EHENS CARTER METAB OLIC PANEL BUN 29 mg/dL 8-19 high Not Available [facility] (Lab) [address] [place], [address], 03/28/2023 13:39:16 03/28/20 23 03/28/2023 COMPR EHENS CARTER METAB OLIC PANEL creatinine 1.12 mg/dL 0.66-1 .25 Not Available [facility] (Lab) [address] [facility] [place], [address], 03/28/2023 13:39:16 03/28/20 23 03/28/2023 COMPR EHENS CARTER METAB OLIC PANEL GFR >60 Refer ence Range : [place] GFR Healt hy Adult : >60 [...] or ethni c subgr oups, such as [facility] nics. Outsi de the valid ated deep [...] calcu lator is avail able on the F websi te: [email or web address] :[email or web address] [email or web address] ivey.o rg/pr ofess ional s/kdo qi/gf r_cal culat or Not Available [facility] (Lab) [address] [place], [address], 03/28/2023 13:39:16 03/28/20 23 03/28/2023 COMPR EHENS CARTER METAB OLIC PANEL alkaline phosphatase 50 U/L 38-126 Not Available [facility] (Lab) [address] [place], [address], 03/28/2023 13:39:16 03/28/20 23 03/28/2023 COMPR EHENS CARTER METAB OLIC PANEL alanine aminotransfe rase 26 U/L 0-50 Not Available [facility] (Lab) [address] [place], [address], 03/28/2023 13:39:16 03/28/20 23 03/28/2023 COMPR EHENS CARTER METAB OLIC PANEL aspartate aminotransfe rase 34 U/L 15-46 Not Available [facility] (Lab) [address] [place], [address], 03/28/2023 13:39:16 03/28/20 23 03/28/2023 COMPR EHENS CARTER METAB OLIC PANEL bilirubin, total 0.90 mg/dL 0.20-1 .30 Not Available [facility] (Lab) [address] [place], [address], 03/28/2023 13:39:16 03/28/20 23 03/28/2023 COMPR EHENS CARTER METAB OLIC PANEL calcium 9.2 mg/dL 8.4-10 .2 Not Available [facility] (Lab) [address] [place], [address], 03/28/2023 13:39:16 03/28/20 23 03/28/2023 COMPR EHENS CARTER METAB OLIC PANEL total protein 7.0 g/dL 6.3-8. 2 Not Available [facility] (Lab) [address] [place], [address], 03/28/2023 13:39:16 03/28/20 23 03/28/2023 COMPR EHENS CARTER METAB OLIC PANEL albumin 4.2 g/dL 3.0-4. 4 Not Available [facility] (Lab) [address] [place], [address], 03/28/2023 13:39:16 03/28/20 23 03/28/2023 COMPR EHENS CARTER METAB OLIC PANEL globulin 2.8 g/dL 2.6-4. 2 Not Available [facility] (Lab) [address] [place], [address], 03/28/2023 13:39:16 03/28/20 23 03/28/2023 COMPR EHENS CARTER METAB OLIC PANEL A/G ratio 1.5 ratio 1.0-2. 0 Not Available [facility] (Lab) [address] [place], [address], 03/28/2023 13:39:16 03/28/20 23 03/28/2023 PSA SCREE N PSA medicare screen 1.07 NG/mL 0.00-4 .00 Not Available [facility] (Lab) [address] [place], [address], 03/28/2023 14:03:13 05/20/20 23 XR, knee [facility] [address] [place] [address] Patien t Name: EDEL ESPINOZA ion #: [id number] Sex: M : 1954 7 Dictat ed By: Trino Mauricio Attend ing Physic anatoliy: ELI CANDELARIA Orderi ng Physic anatoliy: ELI CANDELARIA Exam Date: 2022 10:19 AM Exam Name: [...] or disloc ation of the knee. SL: RADHA PHAM1 Electr onical ly Signed by: Trino Mauricio at 2022 11:34: 32 AM Page 1 [facility] (Imaging) [address] [place], [address], 05/20/2023 15:03:39 Result Notes Documentation Provider Name and Address Organization Details Recorded Time Xr, Knee : [facility] [address] [place] [address] Patient Name: EDEL ESPINOZA Sex: M : 1955 Dictated By: Trino Mauricio Attending Physician: MARJAN CANDELARIA Ordering Physician: MARJAN CANDELARIA Exam Date: 05/20/2023 10:19 AM Exam Name: XR KNEE LT 3V Admitting Diagnosis(es): Knee Series Clinical Indication: knee pain Comparison: None FINDINGS: The 3views of the knee show normal alignment without fractures or dislocations. The medial and lateral tibiofemoral compartments and patellofemoral compartment are unremarkable. There is no knee region soft tissue swelling. Hoffa's fat pad region is unremarkable. There are no joint bodies. There is no joint effusion. There are no radiopaque foreign bodies. If there is further concern, recommend follow-up radiographs or MRI for complete assessment. IMPRESSION: No fractures or dislocation of the knee. ONOFRE: [id number] Page 1 Marcell Ortiz, SLY [facility], [place] [facility] 05/20/2023 15:03:39 Problems Name Problem SNOMED Code Status Onset Date Resolution Date Notes Provider Name and Address Organization Details Recorded Time Nocturia 520817054 Completed Not Available [facility] 3 01:12:18 Dupuytren 's disease of palm 556798958 Active Not Available [facility] 3 07:13:12 Abdominal pain 12317522 Completed Not Available [facility] 3 01:12:18 Gastroeso phageal reflux disease 517585338 Active Not Available [facility] 3 07:13:12 Depressiv e disorder 56523413 Active Not Available [facility] 3 07:13:12 Ulnar neuropath y 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 Active Not Available [facility] 3 07:13:12 Proctitis 7954908 Completed Not Available [facility] 3 01:12:18 Disorder of rotator cuff 646004338 Active Not Available [facility] 3 07:13:12 Pain of shoulder region 28883491 Completed Not Available [facility] 3 01:12:18 Gastritis 9184720 Active Not Available [facility] 3 07:13:12 Anxiety 00019281 Active Not Available [facility] 3 07:13:12 Essential hypertens ion 49982757 Active Not Available [facility] 3 07:13:12 Colitis 27716373 Completed Not Available [facility] 3 01:12:19 Rectal pain 83707018 Completed Not Available [facility] 3 01:12:19 Skin lesion 16647042 Completed Not Available [facility] 3 01:12:19 Celiac disease 355079134 Active 2016 Not Available [facility] 3 07:13:12 Syncope 688363432 Completed 201604/28/2019 Not Available [facility] 3 01:12:18 Numbness of foot 709458992 Completed 201604/28/2019 Not Available [facility] 3 01:12:18 Insomnia 971389719 Active 2018 Not Available [facility] 3 07:13:12 Gastroeso phageal reflux disease without esophagit is 469210667 Active 2018 Not Available [facility] 3 07:13:12 Sore throat 079501283 Active 2021 Not Available [facility] 3 07:13:12 COVID-19 437728311 Active 2021 Not Available [facility] 3 07:13:12 Injury of knee 185341424 Active 2022 Not Available [facility] 3 07:13:11 Pain of left knee joint 82172779257 4107 Active 2022 Not Available [facility] 3 07:13:12 Open wound of knee without complicat ion 28750522 Active 2022 Not Available [facility] 3 07:13:12 Problem Notes None recorded. Procedures Surgical History Date Name Laterality Status Provider Name and Address Organization Details Recorded Time 05/23/20 23 Medicare Wellness CPT Code, Initial completed Nell Ladd RN [place] [employer] [facility] 05/23/2023 15:00:09 09/18/19 23 Endoscopy completed Not Available [facility] 3 01:06:50 09/18/19 23 Colonoscopy completed Not Available [facility] 11/08/19 23 01:06:50 other completed Not Available [facility] 09/2022 01:06:50 Imaging Results None recorded. Procedure Notes None recorded. Medical Equipment None Reported. Allergies Allergen ID Allergen Name Allergen Category Reaction Reaction Severity Criticality Documentation Date Start Date Code Code System Note Provider Name and Address Organization Details Recorded Time 1977 iodine medicatio n respirato ry distress Not available Not available 11/07/2022 5933 RxNorm Not Available [facility] 3 01:18:45 Medications Name Sig Start Date [...] administe red by the provider 09/12 completed [facility]: 0003- 0494- 20 Not Available Not Available [...] administe red by the provider 09/12 completed [facility]: 0409- 4276- 17 Not Available Not Available [...] Heart rate Body temperature Body weight Systolic And Diastolic Provider Name and Address Organization Details Last Updated DateTime 3 27.6 kg/m2 187.96 cm 67 /min 98.1 [degF] 40314.3 6 g 116/80 mm[Hg] Not Available [employer] 3 01:08:10 Date Recorded Systolic And Diastolic Provider Name and Address Organization Details Last Updated DateTime 09/26/2023 136/84 mm[Hg] SLY Cannon [facility] [employer] [facility] 09/26/2023 11:36:43 Date Recorded Body height Body mass index (BMI) Body weight Body temperature Heart rate Oxygen saturation Oxygen saturation in Arterial blood by Pulse oximetry Systolic And Diastolic Provider Name and Address Organization Details Last Updated DateTime 4 187.96 cm 27.2 kg/m2 04194.5 8 g 97.5 [degF] 67 /min 96 % 96 % 151/80 mm[Hg] Salima Rowell MA [facility] [employer] [facility] 4 10:31:52 Date Recorded Body height Body mass index (BMI) Body weight Body temperature Heart rate Systolic And Diastolic Provider Name and Address Organization Details Last Updated DateTime 3 187.96 cm 27.7 kg/m2 23080.9 5 g 98.1 [degF] 75 /min 140/82 mm[Hg] Shweta Christy Nnamdi [facility] [employer] [facility] 3 10:29:16 Date Recorded Body height Body mass index (BMI) Body weight Body temperature Heart rate Systolic And Diastolic Provider Name and Address Organization Details Last Updated DateTime 3 187.96 cm 27.6 kg/m2 17644.3 6 g 98.5 [degF] 60 /min 132/84 mm[Hg] SLY Cannon [facility] [employer] [facility] 3 14:50:25 Date Recorded Pain severity - 0-10 verbal numeric rating [Score] - Reported Provider Name and Address Organization Details Last Updated DateTime 05/23/2023 0 Nell Ladd RN [facility] [employer] [facility] 05/23/2023 15:00:47 Date Recorded Body height Body mass index (BMI) Body weight Body temperature Heart rate Systolic And Diastolic Provider Name and Address Organization Details Last Updated DateTime 3 187.96 cm 27.6 kg/m2 58332.3 6 g 98.1 [degF] 64 /min 132/88 mm[Hg] SLY Cannon [facility] [email or web address] [facility] 3 14:49:49 Social History Question Answer Notes LastModified by Organizat ion Details LastModified Time Tobacco Smoking Status Former Smoker quite age 44 Not Available [employer] 11/07/2022 01:02:29 Do You Have An Advance Directive? No [id number] Information not available 11/07/2022 Do You Wear A Helmet When Biking? No MIGRATION.90683 [id number] Information not available 11/07/2022 What Is Your Level Of Caffeine Consumption? Occasional MIGRATION.26439 12351 Information not available 11/07/2022 How Much Tobacco Do You Chew? None MIGRATION.42645 [id number] Information not available 11/07/2022 In The 14 Days Before Symptom Onset, Have You Had Close Contact With A Laboratory-confi rmed COVID-19 While That Case Was Ill? No MIGRATION.24390 [id number] Information not available 11/07/2022 In The 14 Days Before Symptom Onset, Have You Had Close Contact With A Person Who Is Under Investigation For COVID-19 While That Person Was Ill? No MIGRATION.26230 10374 Information not available 11/07/2022 What Type Of Diet Are You Following? GLUTENFREE MIGRATION.84495 93084 Information not available 11/07/2022 Which Illicit Or Recreational Drugs Have You Used? None MIGRATION.25264 94023 Information not available 11/07/2022 What Is The Highest Grade Or Level Of School You Have Completed Or The Highest Degree You Have Received? [id number] MIGRATION.71098 38850 Information not available 11/07/2022 How Many Days Of Moderate To Strenuous Exercise, Like A Brisk Walk, Did You Do In The Last 7 Days? 7 MIGRATION.25113 18938 Information not available 11/07/2022 On Those Days That You Engage In Moderate To Strenuous Exercise, How Many Minutes, On Average, Do You Exercise? 55 MIGRATION.93845 95297 Information not available 11/07/2022 Have There Been Any Changes To Your Family Or Social Situation? No MIGRATION.29872 67569 Information not available 11/07/2022 Are There Any Guns Present In Your Home? Yes MIGRATION.57574 00278 Information not available 11/07/2022 Do You Use Insect Repellent Routinely? No MIGRATION.45115 17031 Information not available 11/07/2022 Where Do You Live? [place] MIGRATION.12431 20977 Information not available 11/07/2022 Do You Have A Medical Power Of Warehouser? No MIGRATION.79286 80216 Information not available 11/07/2022 What Was The Date Of Your Most Recent Tobacco Screening? 05/23/2023 Information not available 05/23/2023 Do You Have Any Pets? Yes MIGRATION.06069 25220 Information not available 11/07/2022 What Is Your Relationship Status? MIGRATION.65143 11206 Information not available 11/07/2022 Do You Use Your Seat Belt Or Car Seat Routinely? Yes MIGRATION.88316 21154 Information not available 11/07/2022 Do You Have Smoke And Carbon Monoxide Detectors In Your Home? Yes MIGRATION.99785 77893 Information not available 11/07/2022 Are You Passively Exposed To Smoke? No MIGRATION.99832 99591 Information not available 11/07/2022 Are There Any Smokers In Your House? No MIGRATION.68815 98167 Information not available 11/07/2022 How Much Tobacco Do You Smoke? No MIGRATION.01926 26120 Information not available 11/07/2022 Do You Use Sunscreen Routinely? Yes MIGRATION.82561 70065 Information not available 11/07/2022 How Many Years Have You Smoked Tobacco? 20 Smoked 20 Years Ago For About 20years MIGRATION.61457 55354 Information not available 11/07/2022 Have You Recently Traveled Abroad? No [id number] Information not available 11/07/2022 Do You Have Any Dietary Restrictions? No [id number] Information not available 11/07/2022 Sex: Male Functional Status Question Answer Note LastModified by Organizat ion Details LastModified Time Do you use any illicit or recreational drugs? No [id number].[id number] Information not available 11/07/2022 Do you or have you ever used any other forms of tobacco or nicotine? No [id number].[id number] Information not available 11/07/2022 What is your level of alcohol consumption? None [id number] Information not available 11/07/2022 Do you or have you ever used smokeless tobacco? 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 Never used electronic cigarettes MIGRATION.[id number] 2096 Information not available 11/07/2022 What is your exercise level? Moderate MIGRATION.[id number] Information not available 11/07/2022 Mental Status Question Answer Note LastModified by [facility] Details LastModified Time Do you feel stressed (tense, restless, nervous, or anxious, or unable to sleep at night)? [id number] Information not available 11/07/2022 Family History Relationship Description Onset Age of this Age Resolved Age Notes LastModified by Organization Details LastModified Time Brother Heart disease [id number] Not available 11/07/2022 01:06:52 Mother Heart disease [id number] Not available 11/07/2022 01:06:52 Father Heart disease MIGRATION.[id number] Not available 11/07/2022 01:06:52 Medical History Condition Response NERVE DISEASE N BLINDNESS N RHEUMATIC FEVER N KIDNEY STONES N BLADDER PROBLEMS N MRSA N CARPAL TUNNEL SYNDROME N OTHER # 1 Y POLIO N LUNG DISEASE/DISORDER N HISTORY OF DRUG ABUSE N COPD N RADIATION / CHEMOTHERAPY N Other # 2 N BLOOD DISEASES N SURGERY N EAR OR HEARING PROBLEMS Y MUMPS N SCHIZOPHRENIA N SHINGLES N BOWEL PROBLEMS N DEPRESSION (INCLUDING POST ) Y STROKE/TIA N ULCERS N BENIGN PROSTATIC HYPERPLASIA N MEASLES N HYPOTENSION N MYOCARDIAL INFARCTION N OBESITY N GERD/NAUSEA N ANEURYSM N URINARY/BLADDER/KIDNEY PROBLEMS N CORONARY ARTERY DISEASE (CAD) N ADDICTION CONCERNS N ENDOMETRIOSIS N USE OF BLOOD THINNERS N SKIN PROBLEMS N EMPHYSEMA N PERIPHERAL VASCULAR DISEASE N MUSCLE,JOINT OR BONE PROBLEMS Y DVT N STOMACH ULCERS N BLOOD CLOTS N ASTHMA N CATARACTS N USE OF NSAIDS N CONCUSSION OR SPINAL TRAUMA N ERECTILE DYSFUNCTION N VARICOSITIES N GI PROBLEMS N Low Testosterone N NEUROPATHY Y AIDS/HIV N FRACTURES N CHEMOTHERAPY / RADIATION N LIVER DISEASE N MALE HYPOGONADISM N HYPERTENSION Y Deficiency N TOURETTE'S N ANXIETY DISORDER Y Metal allergy N BLOOD TRANSFUSION N ANEMIA/BLOOD DISORDER N CHRONIC EAR INFECTIONS N BIPOLAR DISORDER N BRONCHITIS N OSTEOARTHRITIS N TUBERCULOSIS N GLAUCOMA N FOOT PROBLEM N HEART VALVE DISORDERS N DIVERTICULITIS N SLEEP APNEA N CHICKENPOX Y ALLERGIES/HAYFEVER N INFECTIOUS DISEASE N PROSTATE N HEART ARRHYTHMIA N INSOMNIA N RHEUMATOID ARTHRITIS N HIGH CHOLESTEROL / HYPERLIPIDEMIA N EYE PROBLEMS N HYPERTHYROIDISM N NEUROLOGICAL PROBLEMS N EDEMA N CHRONIC PAIN SYNDROME N HYPOTHYROIDISM N CAROTID BLOCKAGE N BACK / NECK PROBLEMS N HAVE YOU BEEN HOSPITALIZED OR SEEN IN [facility] IN THE PAST YEAR ? N ATHEROSCLEROSIS N BURSITIS N BREAST PROBLEMS N HERNIATED DISC N DIALYSIS N ECZEMA N FIBROMYALGIA N OSTEOPOROSIS N ARTHRITIS N NO SIGNIFICANT PAST MEDICAL HISTORY N PERIPHERAL NEUROPATHY N DIABETES, TYPE N ENT N HEARTBURN / REFLUX Y AUTISM SPECTRUM DISORDER (ASD) N HEPATITIS / LIVER DISEASE N GOUT N SLEEP DISORDER Y ALZHEIMER'S DISEASE N Brain Problems N HERPES N DEMENTIA N HEADACHES/MIGRAINES N SEIZURES/EPILEPSY N VASCULAR DISEASE N PACEMAKER N Blood Disorder N DIZZINESS N HEAD TRAUMA OR INJURY N HEART DISEASE/HEART PROBLEMS N KIDNEY DISEASE N MULTIPLE SCLEROSIS N CARDIAC ARRHYTHMIA N CANCER: SPECIFY N ANESTHESIA COMPLICATIONS N ATRIAL FIBRILLATION N Gall Stones N PULMONARY EMBOLISM N AUTOIMMUNE DISEASE Y Immunizations Vaccine Type Date Status Note Provider Nam e and Address Organization Details Recorded Time Td (adult), 5 Lf tetanus toxoid, preservative free, adsorbed 3 completed Marjan Candelaria MD [address] [place] [address], [id number], [facility] 05/20/2023 21:41:57 COVID-19 vaccine, vector-nr, rS-Ad26, PF, 0.5 mL 1 completed Not Available [facility] 05/21/2023 07:13:13 Influenza, split virus, quadrivalent, preservative 0 completed Not Available [facility] 05/21/2023 07:13:13 Influenza, split virus, trivalent, preservative 1 completed Not Available [facility] 05/21/2023 07:13:13 Influenza, split virus, quadrivalent, preservative 6 completed Not Available [facility] 05/21/2023 07:13:13 Influenza, high-dose, trivalent, PF 5 completed Not Available [facility] 05/21/2023 07:13:13 Past Encounters Encounter ID Performer Location Encounter Start Date Encounter Closed Date Diagnosis/Indication Diagnosis SNOMED-CT Code Diagnosis ICD10 Code Diagnosis Note [id number] Alejandro Munroe MD [facility] [place] [address] [facility] [address] [place] [address] 11/15/2020 00:00:00 11/15/2020 11:58:23 [id number] Marjan Candelaria MD [facility] Internal [facility] [place] [address] [place] [address] [place] [address] 12/20/2020 00:00:00 12/20/2020 21:24:42 [id number] Marjan Candelaria MD [facility] Internal [facility] [place] [address] [place] [address] [place] [address] 01/31/2021 00:00:00 01/31/2021 22:51:18 [id number] Marjan Candelaria MD [facility] [place] [address] [place] [address] [place] [address] 06/20/2021 00:00:00 06/20/2021 21:49:09 [id number] Marjan Candelaria MD [facility] Internal [facility] [place] [address] [place] [address] [place] [address] 07/25/2021 00:00:00 07/25/2021 13:31:57 [id number] Marjan Candelaria MD [facility] Internal [facility] [place] [address] [place] [address] [place] [address] 01/30/2022 00:00:00 01/31/2022 08:49:22 [id number] Marjan Candelaria MD [facility] Internal [facility] [place] [address] [place] [address] [place] [address] 03/22/2022 00:00:00 03/24/2022 20:45:01 [id number] Marjan Candelaria MD [facility] Internal [facility] [place] [address] [place] [address] [place] [address] 09/20/2022 00:00:00 09/20/2022 23:38:40 [id number] Marjan Candelaria MD [facility] Internal [facility] [place] [address] [place] [address] [place] [address] 03/28/2023 10:20:02 03/28/2023 11:13:59 Essential hypertension 77709902 I10 Screening for malignant neoplasm of prostate 359431245 Z12.5 Gastroesop hageal reflux disease without esophagitis 761184487 K21.9 Insomnia 875341743 G47.0 0 Anxiety 42287150 F41.9 [id number] Marjan Candelaria MD [facility] Internal Med [facility] [address] [facility] [address] [place] [address] 05/20/2023 14:40:15 05/20/2023 15:05:47 Pain of left knee joint 1708370610 86117 M25.562 Open wound of knee without complication 09230962 S81.009A [id number] Marjan Candelaria MD [facility] Internal [facility] [place] [address] [place] [address] [place] [address] 05/23/2023 14:39:45 05/23/2023 15:39:10 Injury of knee 144635485 S89.92XA Adult heal th examination 354472622 Z00.00 Screening for disorder 139163926 Z13.9 [id number] Marjan Candelaria MD [facility] Internal Med [place] [address] [place] [address] [address] 09/26/2023 10:08:07 09/26/2023 12:12:19 Essential hypertension 26230203 I10 Gastroesop hageal reflux disease 162255938 K21.9 Insomnia 271965361 G47.0 0 Health Concerns Section Related Observation LastModified by Organization Detai ls LastModified Time None Recorded Concern Status LastModified by Organization Details LastModified Time None Recorded Advance Directives Directive N: Payers Insurance Date Sequence Insurance Name Policy Number Policy Oliver Covered Member ID Oliver Member ID Guarantor Name 04/14/2024 [facility] Edel SAHNI AARP Edel Espinoza 04/14/2024 1 [place] Edel Espinoza [id number] Edel Espinoza 04/14/2024 2 [employer] (MEDICARE SUPPLEMENT) Edel Espinoza [id number] Edel Espinoza
--- OUTSIDE RECORDS SUMMARY | 2025-04-06 07:49 | XMS_ITS | Patient Health Record ---
Author Organization [facility] Address [address] [facility] [address] [place] [address] Care Team Providers Care Crm Dynamics Developer Name Role Phone Vish Candelaria MD Primary Care Provider Spike Munson Unavailable [phone] Allergies Allergen (clinical drug ingredient) Drug/Non Drug [...] Oxazepam (BZO) P 0 - 300 ng/ml 1-efjogkvvpm-8,3-hdaeqfxq-1, 3-diphenylpyr rolidine (EDDP) N 0 - 300 ng/ml Methamphetamine (MET) N 0 - 1000 ng/ml Methylenedioxymethamphetamine (MDMA) N 0 - 500 ng/ml Morphine (MOP 300/SIL1955) N 0 - 300 ng/ml Methadone (MTD) N 0 - 300 ng/ml Phencyclidine (PCP) N 0 - 25 ng/ml Nortriptyline (TCA) N 0 - 1000 ng/ml Oxycodone N 0 - 300 ng/ml x N 0 - 300 ng/ml Benzodiazepines Reviewed date:01/08/2025 01:37:17 PM Interpretation: Performing Lab:, [facility], [place], [address] [place] [address], [facility], Director - [id number] Notes/Report: An exception occurred while processing this report and so it has incomplete data. Please contact [employer] for assistance. Not Medicated Consistent Not [...] Not Medicated Consistent Not Medicated Consistent Specific [place] 1.017 1.003 - 1.030 pH 6.0 3.0 - 10.9 Oxidants -13 200 g/mL Creatinine 120.9 20.0 - 300.0 mg/dL Reason For Referral No Information Medications Medication SIG (Take, Route, Frequency, Duration) Notes Start Date End Date Status traZODone HCl 150 MG 1.5 tablet at bedti me orally Once a day; Duration: 90 days Active Dexlansoprazole 60 MG TAKE 1 CAPSULE BY MOUTH DAILY Oral; Duration: 90 Days Active Prochlorperazine Maleate 10 MG TAKE 1 TABLET BY MOUTH FOUR TIMES DAILY NEEDED Oral; Duration: 90 Days Active Escitalopram Oxalate 10 MG TAKE 1 TABLET BY MOUTH DAILY; Duration: 90 Active buPROPion HCl ER (XL) 300 MG TAKE 1 TABL ET BY MOUTH EVERY MORNING; Duration: 90 Active Escitalopram Oxalate 10 MG 1 tablet Oral Once a day; Duration: 90 days Active LORazepam 0.5 MG 1 tablet Oral twice a day; Duration: 30 days 01/04/2025 Active Social History Tobacco Use: Social History Observation Description Date Details (start date - stop date) Former Smoker NA - NA Sex Assigned At : Social History Observation Description Sex Assigned At Male Tobacco Control (Standard) Question Answer Notes Tobacco use: Former smoker Problems Problem Type SNOMED Code ICD Code Onset Dates Problem Status W/U Status Risk Notes Problem Moderate recurrent major depression (16018828) Major depressive disorder, recurrent, moderate (F33.1) 4 Active confirmed Problem Generalized anxiety disorder (66766686) Generalized anxiety disorder (F41.1) 4 Active confirmed Problem Primary insomnia (7281802) Primary insomnia (F51.01) 4 Active confirmed Problem Gastro-esophagea l reflux disease without esophagitis (611764015) Gastro-esophage al reflux disease without esophagitis (K21.9) 4 Active confirmed Vital Signs Heart Rate 67 /min 01/04/2025 Height-cm 187.96 cm 01/04/2025 Blood pressure diastolic 88 mm Hg 01/04/2025 Weight-kg 86.64 kg 01/04/2025 Height 74.00 in 01/04/2025 Blood pressure systolic 140 mm Hg 01/04/2025 Weight 191 lbs 01/04/2025 BMI 24.52 kg/m2 01/04/2025 Encounters Encounter [facility] Date [facility] [address] [address] 07/27/2024 Spikenayana Reynosoam Major depressive disorder, recurrent, moderate F33.1 ; Primary insomnia F51.01 ; Gastro-esophageal reflux disease without esophagitis K21.9 and Generalized anxiety disorder F41.[address] [address] 01/04/2025 Spike Andrade Major depressive disorder, recurrent, moderate F33.1 ; Primary insomnia F51.01 ; Gastro-esophageal reflux disease without esophagitis K21.9 ; Generalized anxiety disorder F41.1 ; Encounter for screening for depression Z13.31 ; Encounter for screening for cardiovascular disorders Z13.6 and Dietary counseling and surveillance Z71.3 Assessments Encounter Date Diagnosis (ICD Code) Assessment Notes Treatment Notes Treatment Clinical Notes Section Notes 07/27/2024 Major depressive disorder, recurrent, moderate (ICD-10 [...] medical concerns since last visit. Blood pressure well-controlled , does not smoke or drink. Cholesterol levels have improved with weight loss and lifestyle changes. - Plan: - Encourage patient to continue maintaining a healthy lifestyle, including regular exercise and a balanced diet. Medication Refill - Plan: - Refill prescriptions for Bupropion XL, Escitalopram, and Lorazepam, and send them to [facility] in [place]. - Coordinate with Dr. Candelaria regarding Trazodone prescription if needed. Follow-up - Plan: - Schedule follow-up appointment in 5 months to assess patient's progress and make necessary adjustments to treatment plan. - Advise patient to contact clinic if any concerns or changes in condition arise before scheduled follow-up appointment. 01/04/2025 Major depressive disorder, recurrent, moderate (ICD-10 - F33.1) 07/27/2024 Primary insomnia (ICD-10 - F51.01) Depression [...] medical concerns since last visit. Blood pressure well-controlled , does not smoke or drink. Cholesterol levels have improved with weight loss and lifestyle changes. - Plan: - Encourage patient to continue maintaining a healthy lifestyle, including regular exercise and a balanced diet. Medication Refill - Plan: - Refill prescriptions for Bupropion XL, Escitalopram, and Lorazepam, and send them to [facility] in [place]. - Coordinate with Dr. Candelaria regarding Trazodone prescription if needed. Follow-up - Plan: - Schedule follow-up appointment in 5 months to assess patient's progress and make necessary adjustments to treatment plan. - Advise patient to contact clinic if any concerns or changes in condition arise before scheduled follow-up appointment. 01/04/2025 Primary insomnia (ICD-10 - F51.01) 01/04/2025 Gastro-esophageal reflux disease without esophagitis (ICD-10 - K21.9) 07/27/2024 Gastro-esophageal reflux disease without esophagitis (ICD-10 [...] medical concerns since last visit. Blood pressure well-controlled , does not smoke or drink. Cholesterol levels have improved with weight loss and lifestyle changes. - Plan: - Encourage patient to continue maintaining a healthy lifestyle, including regular exercise and a balanced diet. Medication Refill - Plan: - Refill prescriptions for Bupropion XL, Escitalopram, and Lorazepam, and send them to [facility] in [place]. - Coordinate with Dr. Candelaria regarding Trazodone prescription if needed. Follow-up - Plan: - Schedule follow-up appointment in 5 months to assess patient's progress and make necessary adjustments to treatment plan. - Advise patient to contact clinic if any concerns or changes in condition arise before scheduled follow-up appointment. 01/04/2025 Generalized anxiety disorder (ICD-10 - F41.1) 07/27/2024 Generalized anxiety disorder (ICD-10 - F41.1) [...] medical concerns since last visit. Blood pressure well-controlled , does not smoke or drink. Cholesterol levels have improved with weight loss and lifestyle changes. - Plan: - Encourage patient to continue maintaining a healthy lifestyle, including regular exercise and a balanced diet. Medication Refill - Plan: - Refill prescriptions for Bupropion XL, Escitalopram, and Lorazepam, and send them to [facility] in [place]. - Coordinate with Dr. Candelaria regarding Trazodone prescription if needed. Follow-up - Plan: - Schedule follow-up appointment in 5 months to assess patient's progress and make necessary adjustments to treatment plan. - Advise patient to contact clinic if any concerns or changes in condition arise before scheduled follow-up appointment. 01/04/2025 Encounter for screening for depression (ICD-10 - Z13.31) 01/04/2025 Encounter for screening for cardiovascular disorders (ICD-10 - Z13.6) 01/04/2025 Dietary counseling and surveillance (ICD-10 - Z71.3) 01/04/2025 Reinaldo Edel Olga Crawford is a patient with a history of [...] ensure accuracy, there may be errors, including annealing operator inaccuracies and misspellings of medication names. This document should not be considered a verbatim record, and any discrepancies should be verified with the provider. Plan Of Treatment Next Appt Details Provider Name:Spike K Raymond , 04/07/2025 08:45:00 AM, [address] [address], [facility] [address], [place], [address], Insurance Providers Payer Name Payer Address Payer Phone Subscriber Number Group Number Insured Name Patient Relationship to Insured Coverage Start Date Coverage End Date Medicare-I l Medicare [address] [place] [address] [id number] EDEL ESPINOZA Self - patient is the insured [facility] Medicare Supplement [address] [employer] [place] [address] [id number] EDEL ESPINOZA Self - patient is the insured Medical (General) History Medical History History ICD Code Problems: Gastroesophageal reflux diseas e Generalized anxiety disorder Moderate recurrent major depression Primary insomnia , Surgical History Surgery Date(Month/Year) Other 12/27/2014
--- OUTSIDE RECORDS SUMMARY | 2025-04-06 07:49 | XMS_ITS | Data Portability ---
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 Name Role Phone MARJAN CANDELARIA Primary Care Provider Assessment Encounter Date Assessment Date Assessment LastModified by Organization Details LastModified Time 01/02/2024 01/02/2024 Insomnia trazodone anxiety appropriate on escitalopram lorazepam GERD PPI old records thinks he is up-to-date on screenings and immunizations but will have to see me follow-up with me in 4 months [email or web address] Not available 01/11/2024 22:52:56 07/02/2024 07/02/2024 Insomnia trazodone anxiety appropriate on escitalopram lorazepam GERD PPI old records thinks he is up-to-date on screenings and immunizations but will have to see me follow-up with me in 4 months we will continue with current therapy healthy lifestyle care instructions the aide with some weight loss was discussed due for colonoscopy in 2024 vaccinations declined [email or web address] Not available 07/11/2024 20:35:38 10/08/2024 10/08/2024 GERD [...] or plasma 2024 025 RE [facility], [address] [facility], [facility] [address], [place], [address], 10/10/2024 07:09:16 lipid panel, serum 2024 025 RE [facility], [address] [facility], [facility] [address], [place], [address], 10/10/2024 07:09:15 CBC w/ auto diff 2024 025 RE [facility], [address] [facility], [facility] [address], [place], [address], 10/10/2024 07:09:17 PSA, total, serum or plasma 2023 024 RE [facility], [address] [place] [address], [address], [place], [address], 01/03/2024 08:27:59 lipid panel, serum 2023 024 RE [facility], [address] [place] [address], [address], [place], [address], 01/03/2024 08:27:56 CMP, serum or plasma 2023 024 RE [facility], [address] [place] [address], [address], [place], [address], 01/03/2024 08:27:57 CBC w/ auto diff 2023 024 RE [facility], [address] [place] [address], [address], [place], [address], 01/03/2024 08:27:58 Referral None recorded. Procedures upper endoscopy procedure (EGD) (PROC) 2024 025 [facility], [address], [id number], [place], [address], 02/08/2025 16:20:24 Surgeries None recorded. Imaging None recorded. Medication Orders None recorded. Patient TargetsNo targets recorded. Patient Instructions Encounter Date Encounter Id Patient Instructions Last Modified By Organization Details Last Modified Time 07/02/2024 [id number] A healthy lifestyle: care instructions [email or web address] Not available 07/11/2024 20:35:54 Reason for Referral Urologist Referral for Noctu brigitte Referring Physician: Marjan Candelaria, Internal Medicine, Encounter Date: 03/17/2025 Results Created Date Observation Date Name Description Value Unit Range Abnormal Flag Note LastModifiedBy Organization Detail LastModifiedTime 01/02/20 24 01/03/2024 LIPID PANEL cholesterol, total 174 mg/dL 100-19 9 Not Available [facility] ([facility]) [address] [place], [address], 01/03/2024 08:27:56 01/02/20 24 01/03/2024 LIPID PANEL triglyceride s 77 mg/dL 0-149 Not Available [facility] ([facility]) [address] [place], [address], 01/03/2024 08:27:56 01/02/20 24 01/03/2024 LIPID PANEL HDL cholesterol 63 mg/dL >39 Not Available [facility] ([facility]) [address] [place], [address], 01/03/2024 08:27:56 01/02/20 24 01/03/2024 LIPID PANEL VLDL cholesterol melissa 14 mg/dL 5-40 Not Available [facility] ([facility]) [address] [place], [address], 01/03/2024 08:27:56 01/02/20 24 01/03/2024 LIPID PANEL LDL chol calc ([facility]) 97 mg/dL 0-99 Not Available [facility] ([facility]) [address] [place], [address], 01/03/2024 08:27:56 01/02/20 24 01/03/2024 COMP. METAB OLIC PANEL (14) glucose 86 mg/dL 70-99 Not Available [facility] ([facility]) [address] [place], [address], 01/03/2024 08:27:57 01/02/20 24 01/03/2024 COMP. METAB OLIC PANEL (14) BUN 26 mg/dL 8-27 Not Available [facility] ([facility]) [address] [place], [address], 01/03/2024 08:27:57 01/02/20 24 01/03/2024 COMP. METAB OLIC PANEL (14) creatinine 1.23 mg/dL 0.76-1 .27 Not Available [facility] ([facility]) [address] [place], [address], 01/03/2024 08:27:57 01/02/20 24 01/03/2024 COMP. METAB OLIC PANEL (14) eGFR 65 mL/mi n/1.7 3 >59 Not Available [facility] ([facility]) [address] [place], [address], 01/03/2024 08:27:57 01/02/20 24 01/03/2024 COMP. METAB OLIC PANEL (14) BUN/creatini ne ratio 21 10-24 Not Available [facility] ([facility]) [address] [place], [address], 01/03/2024 08:27:57 01/02/20 24 01/03/2024 COMP. METAB OLIC PANEL (14) sodium 143 mmol/ L 134-14 4 Not Available [facility] ([facility]) [address] [place], [address], 01/03/2024 08:27:57 01/02/20 24 01/03/2024 COMP. METAB OLIC PANEL (14) potassium 4.6 mmol/ L 3.5-5. 2 Not Available [facility] ([facility]) [address] [place], [address], 01/03/2024 08:27:57 01/02/20 24 01/03/2024 COMP. METAB OLIC PANEL (14) chloride 105 mmol/ L 96-106 Not Available [facility] ([facility]) [address] [place], [place], [address], 01/03/2024 08:27:57 01/02/20 24 01/03/2024 COMP. METAB OLIC PANEL (14) carbon dioxide, total 25 mmol/ L 20-29 Not Available [facility] ([facility]) [address] [place], [place], [address], 01/03/2024 08:27:57 01/02/20 24 01/03/2024 COMP. METAB OLIC PANEL (14) calcium 9.8 mg/dL 8.6-10 .2 Not Available [facility] ([facility]) [address], [place], [address], 01/03/2024 08:27:57 01/02/20 24 01/03/2024 COMP. METAB OLIC PANEL (14) protein, total 6.8 g/dL 6.0-8. 5 Not Available [facility] ([facility]) [address] [facility], [place], [address], 01/03/2024 08:27:57 01/02/20 24 01/03/2024 COMP. METAB OLIC PANEL (14) albumin 4.5 g/dL 3.9-4. 9 Not Available [facility] ([facility]) [address] [place], [address], 01/03/2024 08:27:57 01/02/20 24 01/03/2024 COMP. METAB OLIC PANEL (14) globulin, total 2.3 g/dL 1.5-4. 5 Not Available [facility] ([facility]) [address] [facility] [place], [address], 01/03/2024 08:27:57 01/02/20 24 01/03/2024 COMP. METAB OLIC PANEL (14) A/G ratio 2.0 1.2-2. 2 Not Available [facility] ([facility]) [address] [place], [address], 01/03/2024 08:27:57 01/02/20 24 01/03/2024 COMP. METAB OLIC PANEL (14) bilirubin, total 0.6 mg/dL 0.0-1. 2 Not Available [facility] ([facility]) [address] [facility], [place], [address], 01/03/2024 08:27:57 01/02/20 24 01/03/2024 COMP. METAB OLIC PANEL (14) alkaline phosphatase 61 IU/L 44-121 Not Available [facility] ([facility]) [address] [place], [address], 01/03/2024 08:27:57 01/02/20 24 01/03/2024 COMP. METAB OLIC PANEL (14) AST (SGOT) 22 IU/L 0-40 Not Available [facility] ([facility]) [address] [place], [address], 01/03/2024 08:27:57 01/02/20 24 01/03/2024 COMP. METAB OLIC PANEL (14) ALT (SGPT) 22 IU/L 0-44 Not Available [facility] ([facility]) [address] [place], [address], 01/03/2024 08:27:57 01/02/20 24 01/03/2024 CBC WITH DIFFE RENTI AL/PL ATELE T WBC 4.0 x10e3 /uL 3.4-10 .8 Not Available [facility] ([facility]) [address] [place], [address], 01/03/2024 08:27:58 04/25/01/03/2024 CBC WITH DIFFE RENTI AL/PL ATELE T RBC 4.47 x10e6 /uL 4.14-5 .80 Not Available [facility] ([facility]) [address] [place], [address], 01/03/2024 08:27:58 01/02/20 24 01/03/2024 CBC WITH DIFFE RENTI AL/PL ATELE T hemoglobin 13.7 g/dL 13.0-1 7.7 Not Available [facility] ([facility]) [address] [place], [address], 01/03/2024 08:27:58 01/02/2001/03/2024 CBC WITH DIFFE RENTI AL/PL ATELE T hematocrit 40.8 % 37.5-5 1.0 Not Available [facility] ([facility]) [address] [place], [address], 01/03/2024 08:27:58 01/02/20 24 01/03/2024 CBC WITH DIFFE RENTI AL/PL ATELE T MCV 91 fL 79-97 Not Available [facility] ([facility]) [address] [place], [address], 01/03/2024 08:27:58 01/02/20 24 01/03/2024 CBC WITH DIFFE RENTI AL/PL ATELE T MCH 30.6 pg 26.6-3 3.0 Not Available [facility] ([facility]) [address] [place], [address], 01/03/2024 08:27:58 01/02/20 24 01/03/2024 CBC WITH DIFFE RENTI AL/PL ATELE T MCHC 33.6 g/dL 31.5-3 5.7 Not Available [facility] ([facility]) [address] [place], [address], 01/03/2024 08:27:58 01/02/20 24 01/03/2024 CBC WITH DIFFE RENTI AL/PL ATELE T RDW 12.2 % 11.6-1 5.4 Not Available [facility] ([facility]) [address] [facility], [place], [address], 01/03/2024 08:27:58 01/02/20 24 01/03/2024 CBC WITH DIFFE RENTI AL/PL ATELE T platelets 199 x10e3 /uL 150-45 0 Not Available [facility] ([facility]) [address] [facility], [place], [address], 01/03/2024 08:27:58 01/02/20 24 01/03/2024 CBC WITH DIFFE RENTI AL/PL ATELE T neutrophils 51 % notest ab. Not Available [facility] ([facility]) [address] [facility], [place], [address], 01/03/2024 08:27:58 01/02/20 24 01/03/2024 CBC WITH DIFFE RENTI AL/PL ATELE T lymphs 32 % notest ab. Not Available [facility] ([facility]) [address] [facility], [place], [address], 01/03/2024 08:27:58 01/02/20 24 01/03/2024 CBC WITH DIFFE RENTI AL/PL ATELE T monocytes 12 % notest ab. Not Available [facility] ([facility]) [address] [facility], [place], [address], 01/03/2024 08:27:58 01/02/20 24 01/03/2024 CBC WITH DIFFE RENTI AL/PL ATELE T eos 3 % notest ab. Not Available [facility] ([facility]) [address] [facility], [place], [address], 01/03/2024 08:27:58 01/02/20 24 01/03/2024 CBC WITH DIFFE RENTI AL/PL ATELE T basos 1 % notest ab. Not Available [facility] ([facility]) [address] [facility], [place], [address], 01/03/2024 08:27:58 01/02/20 24 01/03/2024 CBC WITH DIFFE RENTI AL/PL ATELE T neutrophils (absolute) 2.1 x10e3 /uL 1.4-7. 0 Not Available [facility] ([facility]) [address] [facility], [place], [address], 01/03/2024 08:27:58 01/02/20 24 01/03/2024 CBC WITH DIFFE RENTI AL/PL ATELE T lymphs (absolute) 1.3 x10e3 /uL 0.7-3. 1 Not Available [facility] ([facility]) [address] [facility], [place], [address], 01/03/2024 08:27:58 01/02/20 24 01/03/2024 CBC WITH DIFFE RENTI AL/PL ATELE T monocytes(ab solute) 0.5 x10e3 /uL 0.1-0. 9 Not Available [facility] ([facility]) [address] [place], [address], 01/03/2024 08:27:58 01/02/20 24 01/03/2024 CBC WITH DIFFE RENTI AL/PL ATELE T eos (absolute) 0.1 x10e3 /uL 0.0-0. 4 Not Available [facility] ([facility]) [address] [place], [address], 01/03/2024 08:27:58 01/02/20 24 01/03/2024 CBC WITH DIFFE RENTI AL/PL ATELE T baso (absolute) 0.0 x10e3 /uL 0.0-0. 2 Not Available [facility] ([facility]) [address] [place], [address], 01/03/2024 08:27:58 04/25/01/03/2024 CBC WITH DIFFE RENTI AL/PL ATELE T immature granulocytes 1 % notest ab. Not Available [facility] ([facility]) [address] [facility], [place], [address], 01/03/2024 08:27:58 01/02/20 24 01/03/2024 CBC WITH DIFFE RENTI AL/PL ATELE T immature grans (abs) 0.0 x10e3 /uL 0.0-0. 1 Not Available [facility] ([facility]) [address] [facility], [place], [address], 01/03/2024 08:27:58 01/02/2001/03/2024 PROST ATE-S PECIF IC AG prostate specific [...] kits canno t be used inter [facility] . Resul ts canno t be inter prete d as absol soboba evide nce of the prese nce or absen ce of nitza bhatia se. Not Available [facility] ([facility]) [address] [facility], [place], [address], 01/03/2024 08:27:59 10/08/1910/10/2024 LIPID PANEL cholesterol, total 141 mg/dL 100-19 9 Not Available [facility] ([facility]) [address] [facility], [place], [address], 10/10/2024 07:09:15 10/08/19 25 10/10/2024 LIPID PANEL triglyceride s 63 mg/dL 0-149 Not Available [facility] ([facility]) [address] [place], [address], 10/10/2024 07:09:15 10/08/19 25 10/10/2024 LIPID PANEL HDL cholesterol 54 mg/dL >39 Not Available [facility] ([facility]) [address] [place], [address], 10/10/2024 07:09:15 10/08/19 25 10/10/2024 LIPID PANEL VLDL cholesterol melissa 13 mg/dL 5-40 Not Available [facility] ([facility]) [address] [place], [address], 10/10/2024 07:09:15 10/08/19 25 10/10/2024 LIPID PANEL LDL chol calc ([facility]) 74 mg/dL 0-99 Not Available [facility] ([facility]) [address] [place], [address], 10/10/2024 07:09:15 10/08/19 25 10/09/2024 COMP. METAB OLIC PANEL (14) glucose 88 mg/dL 70-99 Not Available [facility] ([facility]) [address] [place], [address], 10/10/2024 07:09:16 10/08/19 25 10/09/2024 COMP. METAB OLIC PANEL (14) BUN 23 mg/dL 8-27 Not Available [facility] ([facility]) [address] [place], [address], 10/10/2024 07:09:16 10/08/19 25 10/09/2024 COMP. METAB OLIC PANEL (14) creatinine 1.25 mg/dL 0.76-1 .27 Not Available [facility] ([facility]) [address] [place], [address], 10/10/2024 07:09:16 10/08/19 25 10/09/2024 COMP. METAB OLIC PANEL (14) eGFR 63 mL/mi n/1.7 3 >59 Not Available [facility] ([facility]) [address] [place], [address], 10/10/2024 07:09:16 10/08/19 25 10/09/2024 COMP. METAB OLIC PANEL (14) BUN/creatini ne ratio 18 10-24 Not Available [facility] ([facility]) [address] [facility], [place], [address], 10/10/2024 07:09:16 10/08/19 25 10/09/2024 COMP. METAB OLIC PANEL (14) calcium 9.3 mg/dL 8.6-10 .2 Not Available [facility] ([facility]) [address] [facility], [place], [address], 10/10/2024 07:09:16 10/08/19 25 10/10/2024 COMP. METAB OLIC PANEL (14) sodium 140 mmol/ L 134-14 4 Not Available [facility] ([facility]) [address] [place], [address], 10/10/2024 07:09:16 10/08/19 25 10/10/2024 COMP. METAB OLIC PANEL (14) potassium 4.8 mmol/ L 3.5-5. 2 Not Available [facility] ([facility]) [address] [place], [address], 10/10/2024 07:09:16 10/08/19 25 10/10/2024 COMP. METAB OLIC PANEL (14) chloride 103 mmol/ L 96-106 Not Available [facility] ([facility]) [address] [place], [address], 10/10/2024 07:09:16 10/08/19 25 10/10/2024 COMP. METAB OLIC PANEL (14) carbon dioxide, total 25 mmol/ L 20-29 Not Available [facility] ([facility]) [address] [facility] [place], [address], 10/10/2024 07:09:16 10/08/19 25 10/10/2024 COMP. METAB OLIC PANEL (14) protein, total 6.3 g/dL 6.0-8. 5 Not Available [facility] ([facility] [address] [facility] [place] [address], 10/10/2024 07:09:16 10/08/19 25 10/10/2024 COMP. METAB OLIC PANEL (14) albumin 4.2 g/dL 3.9-4. 9 Not Available [facility] ([facility]) [address] [facility] [place], [address], 10/10/2024 07:09:16 10/08/19 25 10/10/2024 COMP. METAB OLIC PANEL (14) globulin, total 2.1 g/dL 1.5-4. 5 Not Available [facility] ([facility]) [address] [facility] [place], [address], 10/10/2024 07:09:16 10/08/19 25 10/10/2024 COMP. METAB OLIC PANEL (14) bilirubin, total 0.6 mg/dL 0.0-1. 2 Not Available [facility] ([facility]) [address] [place], [address], 10/10/2024 07:09:16 10/08/19 25 10/10/2024 COMP. METAB OLIC PANEL (14) alkaline phosphatase 60 IU/L 44-121 Not Available [facility] ([facility]) [address] [facility] [place], [address], 10/10/2024 07:09:16 10/08/19 25 10/10/2024 COMP. METAB OLIC PANEL (14) AST (SGOT) 22 IU/L 0-40 Not Available [facility] ([facility]) [address] [facility], [place], [address], 10/10/2024 07:09:16 10/08/1910/10/2024 COMP. METAB OLIC PANEL (14) ALT (SGPT) 17 IU/L 0-44 Not Available [facility] ([facility]) [address] [facility], [place], [address], 10/10/2024 07:09:16 10/08/19 25 10/09/2024 CBC WITH DIFFE RENTI AL/PL ATELE T WBC 4.5 x10e3 /uL 3.4-10 .8 Not Available [facility] ([facility]) [address] [facility], [place], [address], 10/10/2024 07:09:17 10/08/19 25 10/09/2024 CBC WITH DIFFE RENTI AL/PL ATELE T RBC 4.36 x10e6 /uL 4.14-5 .80 Not Available [facility] ([facility]) [address] [facility], [place], [address], 10/10/2024 07:09:17 10/08/1910/09/2024 CBC WITH DIFFE RENTI AL/PL ATELE T hemoglobin 13.0 g/dL 13.0-1 7.7 Not Available [facility] ([facility]) [address] [facility], [place], [address], 10/10/2024 07:09:17 10/08/1910/09/2024 CBC WITH DIFFE RENTI AL/PL ATELE T hematocrit 40.6 % 37.5-5 1.0 Not Available [facility] ([facility]) [address] [place], [address], 10/10/2024 07:09:17 10/08/19 25 10/09/2024 CBC WITH DIFFE RENTI AL/PL ATELE T MCV 93 fL 79-97 Not Available [facility] ([facility]) [address] [facility] [place], [address], 10/10/2024 07:09:17 10/08/19 25 10/09/2024 CBC WITH DIFFE RENTI AL/PL ATELE T MCH 29.8 pg 26.6-3 3.0 Not Available [facility] ([facility]) [address] [facility], [place], [address], 10/10/2024 07:09:17 10/08/19 25 10/09/2024 CBC WITH DIFFE RENTI AL/PL ATELE T MCHC 32.0 g/dL 31.5-3 5.7 Not Available [facility] ([facility]) [address] [facility], [place], [address], 10/10/2024 07:09:17 10/08/19 25 10/09/2024 CBC WITH DIFFE RENTI AL/PL ATELE T RDW 11.8 % 11.6-1 5.4 Not Available [facility] ([facility]) [address] [facility], [place], [address], 10/10/2024 07:09:17 10/08/1910/09/2024 CBC WITH DIFFE RENTI AL/PL ATELE T platelets 210 x10e3 /uL 150-45 0 Not Available [facility] ([facility]) [address] [facility], [place], [address], 10/10/2024 07:09:17 10/08/1910/09/2024 CBC WITH DIFFE RENTI AL/PL ATELE T neutrophils 54 % notest ab. Not Available [facility] ([facility]) [address] [facility], [place], [address], 10/10/2024 07:09:17 10/08/19 25 10/09/2024 CBC WITH DIFFE RENTI AL/PL ATELE T lymphs 30 % notest ab. Not Available [facility] ([facility]) [address] [facility], [place], [address], 10/10/2024 07:09:17 10/08/19 25 10/09/2024 CBC WITH DIFFE RENTI AL/PL ATELE T monocytes 11 % notest ab. Not Available [facility] ([facility]) [address] [facility], [place], [address], 10/10/2024 07:09:17 10/08/19 25 10/09/2024 CBC WITH DIFFE RENTI AL/PL ATELE T eos 3 % notest ab. Not Available [facility] ([facility]) [address] [facility], [place], [address], 10/10/2024 07:09:17 10/08/1910/09/2024 CBC WITH DIFFE RENTI AL/PL ATELE T basos 1 % notest ab. Not Available [facility] ([facility]) [address] [facility], [place], [address], 10/10/2024 07:09:17 10/08/19 25 10/09/2024 CBC WITH DIFFE RENTI AL/PL ATELE T neutrophils (absolute) 2.5 x10e3 /uL 1.4-7. 0 Not Available [facility] ([facility]) [address] [facility], [place], [address], 10/10/2024 07:09:17 10/08/19 25 10/09/2024 CBC WITH DIFFE RENTI AL/PL ATELE T lymphs (absolute) 1.3 x10e3 /uL 0.7-3. 1 Not Available [facility] ([facility]) [address] [place], [address], 10/10/2024 07:09:17 10/08/19 25 10/09/2024 CBC WITH DIFFE RENTI AL/PL ATELE T monocytes(ab solute) 0.5 x10e3 /uL 0.1-0. 9 Not Available [facility] ([facility]) [address] [place], [address], 10/10/2024 07:09:17 10/08/19 25 10/09/2024 CBC WITH DIFFE RENTI AL/PL ATELE T eos (absolute) 0.1 x10e3 /uL 0.0-0. 4 Not Available [facility] ([facility]) [address] [place], [address], 10/10/2024 07:09:17 10/08/19 25 10/09/2024 CBC WITH DIFFE RENTI AL/PL ATELE T baso (absolute) 0.0 x10e3 /uL 0.0-0. 2 Not Available [facility] ([facility]) [address] [place], [address], 10/10/2024 07:09:17 10/08/19 25 10/09/2024 CBC WITH DIFFE RENTI AL/PL ATELE T immature granulocytes 1 % notest ab. Not Available [facility] ([facility]) [address] [place], [address], 10/10/2024 07:09:17 10/08/1910/09/2024 CBC WITH DIFFE RENTI AL/PL ATELE T immature grans (abs) 0.0 x10e3 /uL 0.0-0. 1 Not Available [facility] ([facility]) [address] [place], [address], 10/10/2024 07:09:17 03/17/2003/18/2025 TSH+F REE T4 TSH 2.300 uIU/m L 0.450- 4.500 Not Available [facility] ([facility]) [address] [place], [address], 03/18/2025 10:11:40 03/17/2003/18/2025 TSH+F REE T4 T4,free(dire ct) 1.13 NG/dL 0.82-1 .77 Not Available [facility] ([facility]) [address] [facility] [place], [address], 03/18/2025 10:11:40 03/17/20 25 03/18/2025 COMP. METAB OLIC PANEL (14) glucose 90 mg/dL 70-99 Not Available [facility] ([facility]) [address] [facility], [place], [address], 03/18/2025 10:11:41 03/17/20 25 03/18/2025 COMP. METAB OLIC PANEL (14) BUN 26 mg/dL 8-27 Not Available [facility] ([facility]) [address] [place], [address], 03/18/2025 10:11:41 03/17/20 25 03/18/2025 COMP. METAB OLIC PANEL (14) creatinine 1.25 mg/dL 0.76-1 .27 Not Available [facility] ([facility]) [address] [place], [address], 03/18/2025 10:11:41 03/17/20 25 03/18/2025 COMP. METAB OLIC PANEL (14) eGFR 63 mL/mi n/1.7 3 >59 Not Available [facility] ([facility]) [address] [facility], [place], [address], 03/18/2025 10:11:41 03/17/20 25 03/18/2025 COMP. METAB OLIC PANEL (14) BUN/creatini ne ratio 21 10-24 Not Available [facility] ([facility]) [address] [place], [address], 03/18/2025 10:11:41 03/17/20 25 03/18/2025 COMP. METAB OLIC PANEL (14) sodium 141 mmol/ L 134-14 4 Not Available [facility] ([facility]) [address] [place], [address], 03/18/2025 10:11:41 03/17/20 25 03/18/2025 COMP. METAB OLIC PANEL (14) potassium 4.7 mmol/ L 3.5-5. 2 Not Available [facility] ([facility]) [address] [place], [address], 03/18/2025 10:11:41 03/17/20 25 03/18/2025 COMP. METAB OLIC PANEL (14) chloride 103 mmol/ L 96-106 Not Available [facility] ([facility]) [address] [place], [address], 03/18/2025 10:11:41 03/17/20 25 03/18/2025 COMP. METAB OLIC PANEL (14) carbon dioxide, total 22 mmol/ L 20-29 Not Available [facility] ([facility]) [address] [place], [address], 03/18/2025 10:11:41 03/17/20 25 03/18/2025 COMP. METAB OLIC PANEL (14) calcium 9.6 mg/dL 8.6-10 .2 Not Available [facility] ([facility]) [address] [place], [address], 03/18/2025 10:11:41 03/17/20 25 03/18/2025 COMP. METAB OLIC PANEL (14) protein, total 6.7 g/dL 6.0-8. 5 Not Available [facility] ([facility]) [address] [place], [address], 03/18/2025 10:11:41 03/17/20 25 03/18/2025 COMP. METAB OLIC PANEL (14) albumin 4.6 g/dL 3.9-4. 9 Not Available [facility] ([facility]) [address] [place], [address], 03/18/2025 10:11:41 03/17/20 25 03/18/2025 COMP. METAB OLIC PANEL (14) globulin, total 2.1 g/dL 1.5-4. 5 Not Available [facility] ([facility]) [address] [place], [address], 03/18/2025 10:11:41 03/17/20 25 03/18/2025 COMP. METAB OLIC PANEL (14) bilirubin, total 0.8 mg/dL 0.0-1. 2 Not Available [facility] ([facility]) [address] [place], [address], 03/18/2025 10:11:41 03/17/20 25 03/18/2025 COMP. METAB OLIC PANEL (14) alkaline phosphatase 59 IU/L 44-121 Not Available [facility] ([facility]) [address] [facility], [place], [address], 03/18/2025 10:11:41 03/17/20 25 03/18/2025 COMP. METAB OLIC PANEL (14) AST (SGOT) 20 IU/L 0-40 Not Available [facility] ([facility]) [address] [facility], [place], [address], 03/18/2025 10:11:41 03/17/20 25 03/18/2025 COMP. METAB OLIC PANEL (14) ALT (SGPT) 20 IU/L 0-44 Not Available [facility] ([facility]) [address] [facility], [place], [address], 03/18/2025 10:11:41 03/17/20 25 03/18/2025 CBC WITH DIFFE RENTI AL/PL ATELE T WBC 3.8 x10e3 /uL 3.4-10 .8 Not Available [facility] ([facility]) [address] [facility], [place], [address], 03/18/2025 10:11:42 03/17/20 25 03/18/2025 CBC WITH DIFFE RENTI AL/PL ATELE T RBC 4.33 x10e6 /uL 4.14-5 .80 Not Available [facility] ([facility]) [address] [facility], [place], [address], 03/18/2025 10:11:42 03/17/20 25 03/18/2025 CBC WITH DIFFE RENTI AL/PL ATELE T hemoglobin 13.6 g/dL 13.0-1 7.7 Not Available [facility] ([facility]) [address] [facility], [place], [address], 03/18/2025 10:11:42 03/17/20 25 03/18/2025 CBC WITH DIFFE RENTI AL/PL ATELE T hematocrit 41.3 % 37.5-5 1.0 Not Available [facility] ([facility]) [address] [facility], [place], [address], 03/18/2025 10:11:42 03/17/20 25 03/18/2025 CBC WITH DIFFE RENTI AL/PL ATELE T MCV 95 fL 79-97 Not Available [facility] ([facility]) [address] [place], [address], 03/18/2025 10:11:42 03/17/20 25 03/18/2025 CBC WITH DIFFE RENTI AL/PL ATELE T MCH 31.4 pg 26.6-3 3.0 Not Available [facility] ([facility]) [address] [facility], [place], [address], 03/18/2025 10:11:42 03/17/20 25 03/18/2025 CBC WITH DIFFE RENTI AL/PL ATELE T MCHC 32.9 g/dL 31.5-3 5.7 Not Available [facility] ([facility]) [address] [facility], [place], [address], 03/18/2025 10:11:42 03/17/20 25 03/18/2025 CBC WITH DIFFE RENTI AL/PL ATELE T RDW 12.0 % 11.6-1 5.4 Not Available [facility] ([facility]) [address] [facility], [place], [address], 03/18/2025 10:11:42 03/17/20 25 03/18/2025 CBC WITH DIFFE RENTI AL/PL ATELE T platelets 202 x10e3 /uL 150-45 0 Not Available [facility] ([facility]) [address] [facility], [place], [address], 03/18/2025 10:11:42 03/17/20 25 03/18/2025 CBC WITH DIFFE RENTI AL/PL ATELE T neutrophils 55 % notest ab. Not Available [facility] ([facility]) [address] [facility], [place], [address], 03/18/2025 10:11:42 03/17/20 25 03/18/2025 CBC WITH DIFFE RENTI AL/PL ATELE T lymphs 31 % notest ab. Not Available [facility] ([facility]) [address] [facility], [place], [address], 03/18/2025 10:11:42 03/17/20 25 03/18/2025 CBC WITH DIFFE RENTI AL/PL ATELE T monocytes 10 % notest ab. Not Available [facility] ([facility]) [address] [facility], [place], [address], 03/18/2025 10:11:42 03/17/20 25 03/18/2025 CBC WITH DIFFE RENTI AL/PL ATELE T eos 2 % notest ab. Not Available [facility] ([facility]) [address] [facility], [place], [address], 03/18/2025 10:11:42 03/17/20 25 03/18/2025 CBC WITH DIFFE RENTI AL/PL ATELE T basos 1 % notest ab. Not Available [facility] ([facility]) [address] [facility], [place], [address], 03/18/2025 10:11:42 03/17/20 25 03/18/2025 CBC WITH DIFFE RENTI AL/PL ATELE T neutrophils (absolute) 2.1 x10e3 /uL 1.4-7. 0 Not Available [facility] ([facility]) [address] [facility], [place], [address], 03/18/2025 10:11:42 03/17/20 25 03/18/2025 CBC WITH DIFFE RENTI AL/PL ATELE T lymphs (absolute) 1.2 x10e3 /uL 0.7-3. 1 Not Available [facility] ([facility]) [address] [facility], [place], [address], 03/18/2025 10:11:42 03/17/20 25 03/18/2025 CBC WITH DIFFE RENTI AL/PL ATELE T monocytes(ab solute) 0.4 x10e3 /uL 0.1-0. 9 Not Available [facility] ([facility]) [address] [facility], [place], [address], 03/18/2025 10:11:42 03/17/20 25 03/18/2025 CBC WITH DIFFE RENTI AL/PL ATELE T eos (absolute) 0.1 x10e3 /uL 0.0-0. 4 Not Available [facility] ([facility]) [address] [facility], [place], [address], 03/18/2025 10:11:42 03/17/20 25 03/18/2025 CBC WITH DIFFE RENTI AL/PL ATELE T baso (absolute) 0.0 x10e3 /uL 0.0-0. 2 Not Available [facility] ([facility]) [address] [facility], [place], [address], 03/18/2025 10:11:42 03/17/20 25 03/18/2025 CBC WITH DIFFE RENTI AL/PL ATELE T immature granulocytes 1 % notest ab. Not Available [facility] ([facility]) [address] [facility], [place], [address], 03/18/2025 10:11:42 03/17/20 25 03/18/2025 CBC WITH DIFFE RENTI AL/PL ATELE T immature grans (abs) 0.0 x10e3 /uL 0.0-0. 1 Not Available [facility] ([facility]) [address] [facility], [place], [address], 03/18/2025 10:11:42 03/17/20 25 03/18/2025 PROST ATE-S PECIF IC AG prostate specific Ag 1.6 NG/mL 0.0-4. 0 Jacey ECLIA metho dolog [...] t be inter prete d as absol soboba evide nce of the prese nce or absen ce of nitza huffman disea se. Not Available [facility] ([facility]) [address] [facility], [place], [address], 03/18/2025 10:11:43 03/17/20 25 03/28/2025 FREE T-3 free T-3 3.0 pg/mL Refer ence Range : >=20y : 2.0 - 4.4 Not Available [facility] [address] [place] [address], [place], [address], 03/28/2025 17:10:57 07/13/20 24 11/24/2019 colon oscop y screhodan merino (PROC ) No observ ation record ed. BARCODE Not Available 2023 11:29:42 Result Notes None recorded. Problems Name Problem SNOMED Code Status Onset Date Resolution Date Notes Provider Name and Address Organization Details Recorded Time Pneumococcal vaccination declined 881840562 Active 2023 Marjan Candelaria MD Attn: Nadegemarie mendez,[address] [facility], [place], [address], [place] - [facility] 4 20:35:12 SARS-CoV-2 vaccination declined 3875781966 Active 2023 Marjan Candelaria MD Attn: Dejah g,[address] [facility], [place], [address], [place] [facility] 4 20:35:15 Influenza vaccination declined 584395008 Active 2023 Marjan Candelaria MD Attn: Nadegemarie mendez,[address] [facility], [place], [address], [place] [facility] 4 20:35:16 Insomnia 938723119 Active 2023 Marjan Candelaria MD Attn: Dejah mendez,[address] [facility], [place], [address], [place] [facility] 4 20:35:17 Anxiety 95996997 Active 2023 Marjan Candelaria MD Attn: Nadegemarie mendez,[address] [facility], [place], [address], [place] [facility] 4 20:35:19 Gastroesophag eal reflux disease without esophagitis 365863979 Active 2023 Marjan Candelaria MD Attn: Dejah g,[address] [facility], [place], [address], [place] [facility] 4 20:35:28 Weight decreased 039009918 Active 2024 Marcell Ortiz MA [facility], [place] - [facility] 5 14:44:19 Problem Notes None recorded. Medical Equipment None Reported. Allergies Allergen ID Allergen Name Allergen Category Reaction Reaction Severity Criticality Documentation Date Start Date Code Code System Note Provider Name and Address Organization Details Recorded Time 058905 iodine medicatio n dyspnea edema Not available Not available Not available 01/02/2024 5933 RxNorm Barby Woods MA null, [place] - [facility] 4 10:41:31 Medications Name [...] TAKE 1 AND 1/2 TABLETS BY MOUTH DAILY AT BEDTIME active Not Available Not Available No t Available prednisone 50 mg tablet TAKE 1 TABLET BY MOUTH [address], 1 TABLET BY MOUTH [address], AND 1 TABLET BY MOUTH [address] active Not Available Not Available No t Available Benadryl 25 mg capsule TAKE 2 CAPSULES BY MOUTH [address] 2024 active Not Available Not Available Not Avai lable escitalopra m 10 mg tablet TAKE 1 TABLET BY MOUTH DAILY active Not Available Not Available No t Available escitalopra m 20 mg tablet TAKE [...] and Address Organization Details Last Updated DateTime 5 187.96 cm 24.8 kg/m2 27776.4 1 g 60 /min 97 % 97 % 130/80 mm[Hg] Ivet Montelongo MA [facility] 5 15:47:28 Date Recorded Body height Body mass index (BMI) Body weight Heart rate Oxygen saturation Oxygen saturation in Arterial blood by Pulse oximetry Systolic And Diastolic Provider Name and Address Organization Details Last Updated DateTime 4 187.96 cm 26.3 kg/m2 81096.4 4 g 59 /min 98 % 98 % 120/80 mm[Hg] Barby Woods MA [facility] 4 10:47:39 Date Recorded Body height Body mass index (BMI) Body weight Heart rate Oxygen saturation Oxygen saturation in Arterial blood by Pulse oximetry Provider Name and Address Organization Details Last Updated DateTime 5 187.96 cm 23 kg/m2 49974.0 3 g 63 /min 99 % 99 % Ale Head MA [facility] 5 13:56:25 Date Recorded Body height Body mass index (BMI) Body weight Heart rate Oxygen saturation Oxygen saturation in Arterial blood by Pulse oximetry Systolic And Diastolic Provider Name and Address Organization Details Last Updated DateTime 4 187.96 cm 25.3 kg/m2 53130.7 g 58 /min 96 % 96 % 124/70 mm[Hg] Ale Head MA [facility] 4 11:25:21 Social History Question Answer Notes LastModified by Organizat ion Details LastModified Time Tobacco Smoking Status Former Smoker Barby Woods MA null, [facility] 01/02/2024 10:50:38 Are You Blind Or Do You Have Difficulty Seeing? No Information not available 01/02/2024 What Is Your Level Of Caffeine Consumption? Occasional Information not available 07/02/2024 In The 14 Days Before Symptom Onset, Have You Had Close Contact With A Laboratory-confir med COVID-19 While That Case Was Ill? No Information not available 07/02/2024 In The 14 Days Before Symptom Onset, Have You Had Close Contact With A Person Who Is Under Investigation For COVID-19 While That Person Was Ill? No Information not available 07/02/2024 Have You Been To An Area Known To Be High Risk For COVID-19? No Information not available 07/02/2024 Are You Deaf Or Do You Have Serious Difficulty Hearing? No Information not available 01/02/2024 What Type Of Diet Are You Following? REGULAR Information not available 07/02/2024 Are There Any Guns Present In Your Home? No Information not available 07/02/2024 What Was The Date Of Your Most Recent Tobacco Screening? 03/17/2025 Information not available 03/17/2025 What Is Your Relationship Status? Information not available 01/02/2024 Do You Use Your Seat Belt Or Car Seat Routinely? Yes Information not available 07/02/2024 Do You Have Smoke And Carbon Monoxide Detectors In Your Home? Yes Information not available 07/02/2024 How Much Tobacco Do You Smoke? 1 PPD Information not available 01/02/2024 Do You Use Sunscreen Routinely? Yes Information not available 07/02/2024 Has Tobacco Cessation Counseling Been Provided? No Information not available 07/02/2024 How Many Years Have You Smoked Tobacco? 20 Information not available 01/02/2024 Sex: Male Functional Status Question Answer Note LastModified by Organizat ion Details LastModified Time Do you use any illicit or recreational drugs? No Information not available 07/02/2024 Do you or have you ever used any other forms of tobacco or nicotine? No Information not available 07/02/2024 What is your level of alcohol consumption? Heavy Information not available 01/02/2024 Are you currently employed? No Information not available 07/02/2024 Are you able to care for yourself independently? Yes Information not available 01/02/2024 What is your exercise level? None Information not available 07/02/2024 Mental Status Question Answer Note LastModified by Organization D etails LastModified Time Do you feel stressed (tense, restless, nervous, or anxious, or unable to sleep at night)? [id number] Information not available 01/02/2024 Family History Relationship Description Onset Age of this Age Resolved Age Notes LastModified by Organization Details LastModified Time Brother Harmful pattern of use of alcohol apaytonma Not available 2023 10:42:12 Brother Depressive disorder apaytonma Not available 2023 10:42:49 Brother Heart disease apaytonma Not available 2023 10:42:55 Brother Hypertensive disorder apaytonma Not available 2023 10:43:05 Brother Harmful pattern of use of alcohol apaytonma Not available 2023 10:49:59 Brother Depressive disorder apaytonma Not available 2023 10:50:04 Brother Heart disease apaytonma Not available 2023 10:50:11 Brother Hypertensive disorder apaytonma Not available 2023 10:50:19 Father Harmful pattern of use of alcohol apaytonma Not available 2023 10:42:12 Father Heart disease apaytonma Not available 2023 10:42:55 Father Hypertensive disorder apaytonma Not available 2023 10:43:05 Father Harmful pattern of use of alcohol apaytonma Not available 2023 10:50:00 Father Heart disease apaytonma Not available 2023 10:50:11 Father Hypertensive disorder apaytonma Not available 2023 10:50:19 Mother Hypertensive disorder apaytonma Not available 2023 10:43:05 Mother Hypertensive disorder apaytonma Not available 2023 10:50:19 Medical History Condition Response Depression Y Acid Reflux (GERD) Y Hepatitis Y Immunizations Vaccine Type Date Status Note Provider Nam e and Address Organization Details Recorded Time Influenza, high-dose, trivalent, PF 5 completed Not Available [facility] 03/17/2025 13:43:54 Influenza, split virus, quadrivalent, preservative 6 completed Not Available [facility] 03/17/2025 13:43:54 Influenza, split virus, quadrivalent, PF 0 completed Not Available [facility] 03/17/2025 13:43:54 COVID-19 vaccine, vector-nr, rS-Ad26, PF, 0.5 mL 1 completed Not Available [facility] 03/17/2025 13:43:54 Influenza, split virus, trivalent, preservative 1 completed Not Available [facility] 03/17/2025 13:43:54 COVID-19, mRNA, LNP-S, PF, 30 mcg/0.3 mL dose 1 completed Not Available [facility] 03/17/2025 13:43:54 COVID-19, mRNA, LNP-S, PF, 30 mcg/0.3 mL dose, daniel-sucrose 2 completed Not Available [facility] 03/17/2025 13:43:54 Td (adult), 5 Lf tetanus toxoid, preservative free, adsorbed 3 completed Not Available [facility] 03/17/2025 13:43:54 Past Encounters Encounter ID Performer Location Encounter Start Date Encounter Closed Date Diagnosis/Indication Diagnosis SNOMED-CT Code Diagnosis ICD10 Code Diagnosis Note [id number] Marjan Candelaria MD [facility] [employer] [address] [place] [address] 01/02/2024 10:18:04 01/02/2024 11:29:00 Gastroesophageal reflux disease without esophagitis 778265901 K21.9 Screening for cardiovascular system disease 090146937 Z13.6 Long-term drug therapy 921862202 Z79.899 Screening for malignant neoplasm of prostate 253142914 Z12.5 Anxiety 30749927 F41.9 Insomnia 308108991 G47.0 0 [id number] Marjan Candelaria MD [facility] [employer] [address] [place] [address] 07/02/2024 11:08:27 07/02/2024 12:06:06 Overweight 555249388 E66.3 Gastroesop hageal reflux disease without esophagitis 623593443 K21.9 Anxiety 90228902 F41.9 Insomnia 214386718 G47.0 0 Influenza vaccination declined 445602138 Z28.21 SARS-CoV-2 vaccination declined 9219253345 Z28.21 Pneumococc al vaccination declined 755674971 Z28.21 [id number] Marjan Candelaria MD [facility] - [facility] [address] [place] [address] 10/08/2024 15:06:10 10/08/2024 16:17:55 Body mass index 20-24 - normal 925996659 Z68.24 Gastroesop hageal reflux disease without esophagitis 807094556 K21.9 Screening for cardiovascular system disease 050128765 Z13.6 Long-term drug therapy 237477782 Z79.525 [id number] Marjan Candelaria MD [facility] ([facility] [address] [place] [address] 03/17/2025 13:42:52 03/17/2025 14:46:44 Weight decreased 168560037 R63.4 Screening for malignant neoplasm of prostate 345283016 Z12.5 Nocturia 324101502 R35.1 Health Concerns Section Related Observation LastModified by Organization Detai ls LastModified Time None Recorded Concern Status LastModified by Organization Details LastModified Time None Recorded Advance Directives Directive None Recorded Payers Insurance Date Sequence Insurance Name Policy Number Policy Oliver Covered Member ID Oliver Member ID Guarantor Name 03/16/2025 [place] - [place] Juan Acharya [id number] Juan Acharya 04/05/2025 2 [employer] (MEDICARE SUPPLEMENT) Juan Acharya [id number] Juan Acharya 03/16/2025 1 [place] Juan Acharya [id number] Juan Acharya
[2025-04-07 10:55] LABS: Estimated Glomerular Filt Rate 50
== END 2025-04-06 07:45 | disposition home or self-care (01) ==
PROVIDERS: PCP Internal Medicine; Visit Provider Internal Medicine
DX: R63.4 Abnormal weight loss (principal); Z68.23 Body mass index [BMI] 23.0-23.9, adult
CPT/HCPCS: 71260; 74177; Q9967